=== PATIENT | female | born 1955 | race Caucasian/White ===

== ENCOUNTER → 2020-04-14 14:21 | Outpatient (BNVA) | payer MEDICARE, SELFPAY | PROVIDERS: PCP Internal Medicine; Visit Provider Internal Medicine | DX: I26.99 Other pulmonary embolism without acute cor pulmonale (principal); Z51.81 Encounter for therapeutic drug level monitoring; Z79.01 Long term (current) use of anticoagulants | CPT/HCPCS: 85610 ==

== ENCOUNTER → 2020-04-28 14:22 | Outpatient (BNVA) | payer MEDICARE, SELFPAY | PROVIDERS: PCP Internal Medicine; Visit Provider Internal Medicine | DX: I26.99 Other pulmonary embolism without acute cor pulmonale (principal); Z51.81 Encounter for therapeutic drug level monitoring; Z79.01 Long term (current) use of anticoagulants | CPT/HCPCS: 85610 ==

== ENCOUNTER → 2020-05-27 14:53 | Outpatient (BNVA) | payer MEDICARE, SELFPAY | PROVIDERS: PCP Internal Medicine; Referring Provider Internal Medicine; Visit Provider Internal Medicine | DX: I26.99 Other pulmonary embolism without acute cor pulmonale (principal); Z51.81 Encounter for therapeutic drug level monitoring; Z79.01 Long term (current) use of anticoagulants | CPT/HCPCS: 85610; 99211 ==

== ENCOUNTER → 2020-06-10 15:23 | Outpatient (BNVA) | payer MEDICARE, SELFPAY | PROVIDERS: PCP Internal Medicine; Visit Provider Internal Medicine | DX: I26.99 Other pulmonary embolism without acute cor pulmonale (principal); Z51.81 Encounter for therapeutic drug level monitoring; Z79.01 Long term (current) use of anticoagulants | CPT/HCPCS: 85610; 99211 ==

== ENCOUNTER → 2020-07-16 13:09 | Outpatient (BNVA) | payer MEDICARE, SELFPAY | PROVIDERS: PCP Internal Medicine; Visit Provider Internal Medicine | DX: I26.99 Other pulmonary embolism without acute cor pulmonale (principal); Z79.01 Long term (current) use of anticoagulants; Z51.81 Encounter for therapeutic drug level monitoring | CPT/HCPCS: 85610; 99211 ==

== ENCOUNTER → 2020-11-23 11:13 | Outpatient (BNVA) | payer MEDICARE, SELFPAY | PROVIDERS: PCP Internal Medicine; Visit Provider Internal Medicine | DX: I26.99 Other pulmonary embolism without acute cor pulmonale (principal); Z51.81 Encounter for therapeutic drug level monitoring; Z79.01 Long term (current) use of anticoagulants | CPT/HCPCS: 85610; 99211 ==

== ENCOUNTER 2020-12-03 10:22 | Outpatient (REF) | payer MEDICARE, SELFPAY ==
[2020-12-03 12:54] LABS: MANUAL DIFF FLAG NO
[2020-12-03 13:00] LABS: Basophils Absolute Auto 0.1 X10*3/uL (0.0-0.2); Basophils Percent Auto 0.7 % (0-2); Eosinophils Absolute Auto 0.1 X10*3/uL (0.0-0.4); Eosinophils Percent Auto 1.4 % (0-4); Hematocrit 43.2 % (37-47); Hemoglobin 13.6 g/dl (12.0-16.0); Imm Gran Abs Auto 0.05 X10*3/uL (0.00-0.03); Imm Gran Pct Auto 0.6 % (0.0-0.4); Lymphocytes Absolute Auto 1.7 X10*3/uL (1.2-4.9); Lymphocytes Percent Auto 19.6 % (20-40); Mean Corpuscular HGB Conc 31.5 g/dl (31.0-35.0); Mean Corpuscular Hemoglobin 28.1 pg (27.0-33.0); Mean Corpuscular Volume 89.3 fL (80-98); Monocytes Absolute Auto 0.7 X10*3/uL (0.1-1.2); Monocytes Percent Auto 7.8 % (2-11); Neutrophils Absolute Auto 5.9 X10*3/uL (2.0-8.3); Neutrophils Percent Auto 69.9 % (45-73); Platelet Count 249 X10*3/uL (160-400); Red Blood Count 4.84 X10*6/uL (4.20-5.50); Red Cell Distribution Width 14.2 % (11.0-16.0); White Blood Count 8.5 X10*3/uL (4.8-10.8)
[2020-12-03 13:27] LABS: Estimated Average Glucose 212 mg/dL
[2020-12-03 13:29] LABS: Alanine Aminotransferase 26 U/L (0-31); Alkaline Phosphatase 118 U/L (39-117); Anion Gap 17 (12-20); Aspartate Amino Transferase 21 U/L (5-31); Bilirubin Total 0.6 mg/dL (0.0-1.0); Blood Urea Nitrogen 16 mg/dL (9-16); Calcium 8.9 mg/dL (8.4-10.2); Carbon Dioxide 21 mmol/L (22-29); Chloride 104 mmol/L (96-108); Cholesterol 173 mg/dL; Estimated Glomerular Filt Rate > 60; Glucose Random 183 mg/dL (60-115); HDL Cholesterol 41 mg/dL; Potassium 4.2 mmol/L (3.3-5.1); Sodium 138 mmol/L (135-145); Total Protein 7.2 g/dL (6.5-8.0); Triglycerides 405 mg/dL
[2020-12-03 13:53] LABS: Free T4 (Free Thyroxine) 1.13 ng/dL (0.71-1.85); Thyroid Stimulating Hormone 2.13 uIU/mL (0.32-4.0)
== END 2020-12-03 10:23 | disposition home or self-care (01) ==
LOC: HO.MANLDS 10:22
PROVIDERS: Visit Provider Physician Assistant
DX: E11.9 Type 2 diabetes mellitus without complications (principal); E03.9 Hypothyroidism, unspecified
CPT/HCPCS: 36415; 80053; 80061; 83036; 84439; 84443; 85025

== ENCOUNTER → 2020-12-17 14:01 | Outpatient (BNVA) | payer MEDICARE, SELFPAY | PROVIDERS: PCP Internal Medicine; Visit Provider Internal Medicine | DX: I26.99 Other pulmonary embolism without acute cor pulmonale (principal); Z51.81 Encounter for therapeutic drug level monitoring; Z79.01 Long term (current) use of anticoagulants | CPT/HCPCS: 85610; 99211 ==

== ENCOUNTER → 2020-12-31 14:25 | Outpatient (BNVA) | payer MEDICARE, SELFPAY | PROVIDERS: PCP Internal Medicine; Visit Provider Internal Medicine | DX: I26.99 Other pulmonary embolism without acute cor pulmonale (principal); Z51.81 Encounter for therapeutic drug level monitoring; Z79.01 Long term (current) use of anticoagulants | CPT/HCPCS: 85610; 99211 ==

== ENCOUNTER → 2021-01-27 08:21 | Outpatient (BNVA) | payer MEDICARE, SELFPAY | PROVIDERS: PCP Internal Medicine; Visit Provider Internal Medicine | DX: I26.99 Other pulmonary embolism without acute cor pulmonale (principal); Z51.81 Encounter for therapeutic drug level monitoring; Z79.01 Long term (current) use of anticoagulants | CPT/HCPCS: 85610; 99211 ==

== ENCOUNTER → 2021-02-10 08:23 | Outpatient (BNVA) | payer MEDICARE, SELFPAY | PROVIDERS: PCP Internal Medicine; Visit Provider Internal Medicine | DX: I26.99 Other pulmonary embolism without acute cor pulmonale (principal); Z51.81 Encounter for therapeutic drug level monitoring; Z79.01 Long term (current) use of anticoagulants | CPT/HCPCS: 85610; 99211 ==

== ENCOUNTER → 2021-03-03 08:39 | Outpatient (BNVA) | payer MEDICARE, SELFPAY | PROVIDERS: PCP Internal Medicine; Visit Provider Internal Medicine | DX: I26.99 Other pulmonary embolism without acute cor pulmonale (principal); Z51.81 Encounter for therapeutic drug level monitoring; Z79.01 Long term (current) use of anticoagulants | CPT/HCPCS: 85610; 99211 ==

== ENCOUNTER 2021-03-22 09:39 | Outpatient (REF) | payer MEDICARE, SELFPAY ==
--- NOTE | ~2021-03-22 | MM_ITS ---
EXAMINATION: MM SCREENING DIGITAL BREAST TOMOSYNTHESIS, BILATERAL CLINICAL INFORMATION: Screening. Asymptomatic. Right breast lumpectomy in 2010. COMPARISON: Mammography: March 09, 2020 and studies dating back to January 08, 2012 TECHNIQUE: Digital breast tomosynthesis is performed in both the craniocaudal and mediolateral oblique views along with computer-aided detection (CAD). Synthesized 2D images are generated from the tomosynthesis. FINDINGS: There are scattered areas of fibroglandular density (ACR BI-RADS breast composition Category b). Post lumpectomy scarring is seen within the upper outer aspect of the right breast. No new abnormal dominant mass or suspicious grouping of calcifications are present. MM/MM tomosynthesis screening BI IMPRESSION: There are no significant changes from prior study. ASSESSMENT: BI-RADS 2: Benign RECOMMENDATION: Routine annual mammography screening. This patient's information was entered into a reminder system with a target due date for their next mammogram.
== END 2021-03-22 09:40 | disposition home or self-care (01) ==
LOC: HO.MAMMO 09:39
PROVIDERS: PCP Internal Medicine; Visit Provider Internal Medicine
DX: Z12.31 Encounter for screening mammogram for malignant neoplasm of breast (principal)
CPT/HCPCS: 77063; 77067

== ENCOUNTER → 2021-03-31 08:18 | Outpatient (BNVA) | payer MEDICARE, SELFPAY | PROVIDERS: PCP Internal Medicine; Visit Provider Internal Medicine | DX: I26.99 Other pulmonary embolism without acute cor pulmonale (principal); Z51.81 Encounter for therapeutic drug level monitoring; Z79.01 Long term (current) use of anticoagulants | CPT/HCPCS: 85610; 99211 ==

== ENCOUNTER → 2021-06-15 11:35 | Outpatient (BNVA) | payer MEDICARE, SELFPAY | PROVIDERS: PCP Internal Medicine; Visit Provider Internal Medicine | DX: I26.99 Other pulmonary embolism without acute cor pulmonale (principal); Z51.81 Encounter for therapeutic drug level monitoring; Z79.01 Long term (current) use of anticoagulants | CPT/HCPCS: 85610; 99211 ==

== ENCOUNTER → 2021-07-05 11:16 | Outpatient (BNVA) | payer MEDICARE, SELFPAY | PROVIDERS: PCP Internal Medicine; Visit Provider Internal Medicine | DX: I26.99 Other pulmonary embolism without acute cor pulmonale (principal); Z51.81 Encounter for therapeutic drug level monitoring; Z79.01 Long term (current) use of anticoagulants | CPT/HCPCS: 85610; 99211 ==

== ENCOUNTER → 2021-09-08 09:14 | Outpatient (BNVA) | payer MEDICARE, SELFPAY | PROVIDERS: PCP Internal Medicine; Visit Provider Internal Medicine | DX: I26.99 Other pulmonary embolism without acute cor pulmonale (principal); Z51.81 Encounter for therapeutic drug level monitoring; Z79.01 Long term (current) use of anticoagulants | CPT/HCPCS: 85610; 99211 ==

== ENCOUNTER → 2021-11-22 15:54 | Outpatient (BNVA) | payer MEDICARE, SELFPAY | PROVIDERS: PCP Internal Medicine; Visit Provider Internal Medicine | DX: I26.99 Other pulmonary embolism without acute cor pulmonale (principal); Z79.01 Long term (current) use of anticoagulants; Z51.81 Encounter for therapeutic drug level monitoring | CPT/HCPCS: 85610; 99211 ==

== ENCOUNTER 2021-12-12 15:04 | Outpatient (REF) | payer MEDICARE, MEDICAID, SELFPAY ==
[2021-12-12 19:02] LABS: MANUAL DIFF FLAG NO
[2021-12-12 19:07] LABS: Basophils Absolute Auto 0.1 X10*3/uL (0.0-0.2); Basophils Percent Auto 0.7 % (0-2); Eosinophils Absolute Auto 0.1 X10*3/uL (0.0-0.4); Eosinophils Percent Auto 1.5 % (0-4); Hematocrit 46.2 % (37.0-47.0); Hemoglobin 14.9 g/dl (12.0-16.0); Imm Gran Abs Auto 0.07 X10*3/uL (0.00-0.03); Imm Gran Pct Auto 0.8 % (0.0-0.4); Lymphocytes Absolute Auto 1.7 X10*3/uL (1.2-4.9); Lymphocytes Percent Auto 19.6 % (20-40); Mean Corpuscular HGB Conc 32.3 g/dl (31.0-35.0); Mean Corpuscular Hemoglobin 28.8 pg (27.0-33.0); Mean Corpuscular Volume 89.4 fL (80.0-98.0); Mean Platelet Volume 11.1 fL (9.4-12.3); Monocytes Absolute Auto 0.6 X10*3/uL (0.1-1.2); Monocytes Percent Auto 7.5 % (2-11); Neutrophils Absolute Auto 5.9 x10*3/uL (2.0-8.3); Neutrophils Percent Auto 69.9 % (45-73); Platelet Count 228 X10*3/uL (160-400); Red Blood Count 5.17 X10*6/uL (4.20-5.50); Red Cell Distribution Width 14.5 % (11.0-16.0); White Blood Count 8.5 X10*3/uL (4.8-10.8)
[2021-12-12 19:39] LABS: Alanine Aminotransferase 27 U/L (0-31); Albumin Level 4.1 g/dL (3.5-5.0); Alkaline Phosphatase 128 U/L (39-117); Anion Gap 17 (12-20); Aspartate Amino Transferase 21 U/L (5-31); Bilirubin Total 0.6 mg/dL (0.0-1.0); Blood Urea Nitrogen 18 mg/dL (9-16); Calcium 8.8 mg/dL (8.4-10.2); Carbon Dioxide 21 mmol/L (22-29); Chloride 104 mmol/L (96-108); Estimated Glomerular Filt Rate > 60; Glucose Random 204 mg/dL (60-115); Potassium 3.9 mmol/L (3.3-5.1); Sodium 138 mmol/L (135-145); Total Protein 7.4 g/dL (6.5-8.0)
[2021-12-12 19:59] LABS: Free T4 (Free Thyroxine) 1.12 ng/dL (0.71-1.85); Thyroid Stimulating Hormone 2.98 uIU/mL (0.32-4.0); Vitamin D 25-OH Total 24.4 ng/mL (>30)
[2021-12-12 20:09] LABS: Folate 17.4 ng/mL (> or = 4.0); Vitamin B12 415 pg/mL (200-900)
[2021-12-13 05:31] LABS: Estimated Average Glucose 240 mg/dL
== END 2021-12-12 15:05 | disposition home or self-care (01) ==
LOC: HO.MANLDS 15:04
PROVIDERS: Visit Provider Physician Assistant
DX: E11.65 Type 2 diabetes mellitus with hyperglycemia (principal); E11.42 Type 2 diabetes mellitus with diabetic polyneuropathy; E03.8 Other specified hypothyroidism
CPT/HCPCS: 36415; 80053; 82306; 82607; 82746; 83036; 84439; 84443; 85025

== ENCOUNTER 2022-03-28 09:41 | Outpatient (REF) | payer MEDICARE, MEDICAID, SELFPAY ==
--- NOTE | ~2022-03-28 | MM_ITS ---
EXAMINATION: MM SCREENING DIGITAL BREAST TOMOSYNTHESIS, BILATERAL CLINICAL INFORMATION: Screening. Asymptomatic. Right breast cancer status post lumpectomy, 2010. COMPARISON: Mammography: 03/22/2021, 03/09/2020, 02/28/2019 TECHNIQUE: Digital breast tomosynthesis is performed in both the craniocaudal and mediolateral oblique views along with computer-aided detection (CAD). Synthesized 2D images are generated from the tomosynthesis. Additional exaggerated right CC, left CC, and left MLO views are provided. FINDINGS: There are scattered areas of fibroglandular density (ACR BI-RADS breast composition Category b). Parenchymal pattern is similar to prior studies and there is no developing density or interval mass or architectural abnormality. No abnormal calcifications. The axilla are unremarkable. Small smooth nodular asymmetry central 3:00 left breast is similar to prior exams. The right breast has post therapy changes with mild reduced breast size and scarring posterior upper outer quadrant. MM/MM tomosynthesis screening BI IMPRESSION: No mammographic evidence of malignancy. ASSESSMENT: BI-RADS 2: Benign RECOMMENDATION: Routine annual mammography screening. This patient's information was entered into a reminder system with a target due date for their next mammogram.
== END 2022-03-28 09:42 | disposition home or self-care (01) ==
LOC: HO.MAMMO 09:41
PROVIDERS: PCP Internal Medicine; Visit Provider Internal Medicine
DX: Z12.31 Encounter for screening mammogram for malignant neoplasm of breast (principal)
CPT/HCPCS: 77063; 77067

== ENCOUNTER 2022-09-08 07:31 | Outpatient (REF) | payer MEDICARE, MEDICAID, SELFPAY ==
[2022-09-08 11:12] LABS: MANUAL DIFF FLAG NO
[2022-09-08 11:41] LABS: Basophils Absolute Auto 0.1 X10*3/uL (0.0-0.2); Eosinophils Absolute Auto 0.2 X10*3/uL (0.0-0.4); Eosinophils Percent Auto 2.7 % (0-4); Hematocrit 44.1 % (37.0-47.0); Hemoglobin 14.1 g/dl (12.0-16.0); Imm Gran Abs Auto 0.08 X10*3/uL (0.00-0.03); Lymphocytes Absolute Auto 1.2 X10*3/uL (1.2-4.9); Lymphocytes Percent Auto 15.7 % (20-40); Mean Corpuscular Hemoglobin 28.7 pg (27.0-33.0); Mean Corpuscular Volume 89.6 fL (80.0-98.0); Mean Platelet Volume 11.2 fL (9.4-12.3); Monocytes Absolute Auto 0.6 X10*3/uL (0.1-1.2); Monocytes Percent Auto 7.4 % (2-11); Neutrophils Absolute Auto 5.7 x10*3/uL (2.0-8.3); Neutrophils Percent Auto 72.2 % (45-73); Platelet Count 208 X10*3/uL (160-400); Red Blood Count 4.92 X10*6/uL (4.20-5.50); Red Cell Distribution Width 14.6 % (11.0-16.0); White Blood Count 7.9 X10*3/uL (4.8-10.8)
[2022-09-08 11:57] LABS: INTERNATIONAL NORM RATIO 2.8 (0.9-1.1); Prothrombin Time 33.6 SEC (10.0-13.1)
[2022-09-08 11:58] LABS: Estimated Average Glucose 246 mg/dL; Hemoglobin A1c % 10.2 %
[2022-09-08 12:45] LABS: Alanine Aminotransferase 21 U/L (0-31); Albumin Level 3.6 g/dL (3.5-5.0); Alkaline Phosphatase 107 U/L (39-117); Anion Gap 14 (12-20); Aspartate Amino Transferase 21 U/L (5-31); Bilirubin Total 0.8 mg/dL (0.0-1.0); Blood Urea Nitrogen 16 mg/dL (9-16); Calcium 8.5 mg/dL (8.4-10.2); Carbon Dioxide 24 mmol/L (22-29); Chloride 104 mmol/L (96-108); Cholesterol 173 mg/dL; Estimated Glomerular Filt Rate > 60; Glucose Random 242 mg/dL (60-115); HDL Cholesterol 39 mg/dL; LDL Cholesterol Calculated 89 mg/dl; Potassium 4.3 mmol/L (3.3-5.1); Sodium 138 mmol/L (135-145); Total Protein 6.4 g/dL (6.5-8.0); Triglycerides 228 mg/dL
[2022-09-08 13:08] LABS: Thyroid Stimulating Hormone 3.59 uIU/mL (0.32-4.0)
== END 2022-09-08 07:32 | disposition home or self-care (01) ==
LOC: HO.MANLDS 07:31
PROVIDERS: Visit Provider Physician Assistant
DX: E11.65 Type 2 diabetes mellitus with hyperglycemia (principal); E03.8 Other specified hypothyroidism; Z86.718 Personal history of other venous thrombosis and embolism
CPT/HCPCS: 36415; 80053; 80061; 83036; 84439; 84443; 85025; 85610

== ENCOUNTER 2022-12-13 16:46 | Outpatient (REF) | payer MEDICARE, MEDICAID, SELFPAY ==
--- NOTE | ~2022-12-13 | XR_ITS ---
EXAMINATION: XR CHEST CLINICAL INFORMATION: Acute cough COMPARISON: Chest 03/04/2019 TECHNIQUE: 2 views of the chest were obtained. FINDINGS: There is slight patchy opacity along the left heart border at the lung base. This also slight increased density in the right cardiophrenic angle. No pleural effusion. No significant abnormality is noted involving the heart, mediastinum, bony thorax or soft tissues. XR/XR chest 2V IMPRESSION: Left lower lobe pneumonia and right middle lobe atelectasis and/or pneumonia.
== END 2022-12-13 16:47 | disposition home or self-care (01) ==
LOC: HO.XRAY 16:46
PROVIDERS: PCP Internal Medicine; Visit Provider Physician Assistant
DX: R05.1 Acute cough (principal)
CPT/HCPCS: 71046

== ENCOUNTER → 2023-01-05 13:58 | Outpatient (BNVA) | payer MEDICARE, MEDICAID, SELFPAY | PROVIDERS: PCP Internal Medicine; Visit Provider Internal Medicine | DX: Z86.718 Personal history of other venous thrombosis and embolism (principal); Z79.01 Long term (current) use of anticoagulants; Z51.81 Encounter for therapeutic drug level monitoring | CPT/HCPCS: 85610; 99211 ==

== ENCOUNTER 2023-01-08 10:28 | Outpatient (REF) | payer MEDICARE, MEDICAID, SELFPAY | END 2023-01-08 10:29 | disposition home or self-care (01) | LOC: HO.MANLDS 10:28 | PROVIDERS: Visit Provider Physician Assistant | DX: E03.8 Other specified hypothyroidism (principal); E78.2 Mixed hyperlipidemia; E11.65 Type 2 diabetes mellitus with hyperglycemia | CPT/HCPCS: 36415; 80053; 80061; 83036; 84439; 84443; 85025 ==

== ENCOUNTER 2023-01-08 11:04 | Outpatient (REF) | payer MEDICARE, MEDICAID, SELFPAY ==
--- NOTE | ~2023-01-08 | XR_ITS ---
EXAMINATION: XR CHEST CLINICAL INFORMATION: Pneumonia COMPARISON: 12/13/2022 TECHNIQUE: 2 views of the chest were obtained. FINDINGS: No focal consolidation, pulmonary edema, or pleural effusion. Stable cardiomediastinal silhouette. XR/XR chest 2V IMPRESSION: No acute cardiopulmonary findings.
== END 2023-01-08 11:05 | disposition home or self-care (01) ==
LOC: HO.XRAY 11:04
PROVIDERS: PCP Internal Medicine; Visit Provider Physician Assistant
DX: J18.9 Pneumonia, unspecified organism (principal)
CPT/HCPCS: 71046

== ENCOUNTER 2023-02-05 13:00 | Outpatient (AMB) | payer MEDICARE, MEDICAID, SELFPAY ==
--- NOTE | 2023-02-05 13:08 | MHC.OFFVISCO ---
Intake Intake Visit Reasons: Anticoagulation Allergies adhesive [ADHESIVE] Allergy (Unknown, Verified 02/05/23 13:04) RASH Sulfa (Sulfonamide Antibiotics) Allergy (Unknown, Verified 02/05/23 13:04) ITCHY adhesives Allergy (Unknown, Uncoded 02/05/23 13:04) redness sulfa Allergy (Unknown, Uncoded 02/05/23 13:04) itching/rash Medication List - Last Reconciled 02/05/23 by Isabell Hopkins RN atorvastatin 20 mg PO DAILY carvedilol 12.5 mg PO BID cholecalciferol (vitamin D3) 25 mcg PO DAILY clotrimazole-betamethasone 1-0.05 % appl topical glipizide ER 10 mg PO DAILY letrozole 2.5 mg PO DAILY levothyroxine 100 mcg PO DAILY nystatin 5 mL PO QID semaglutide (Rybelsus) 7 mg PO DAILY sitagliptin phosphate (Januvia) 100 mg PO DAILY [STOOL SOFTNER PO BID] tolterodine ER 4 mg PO DAILY vitamin B complex 1 cap PO DAILY warfarin 5 mg See Protocol PO DAILY Nursing Note INR 3.8-?? out of therapeutic range Medications and supplements reviewed Patient status: pt with no c.o- unsure why inr elev Medications or supplements: no changes Diet: appetite is good, lost 22 lbs Denies any signs and symptoms of bleeding or clotting or unusual bruising Bleeding, bruising, clotting discussed Nutritional guidance given: eat greens to lower inr, no reds for 2 days Dose: hold dose today then cont 7.5mg x 3, 5mg x 4 F/U INR Date : 2 weeks?? Patient verbalizing understanding of instructions given. Coding Level of Care Code Est Patient Level 1 Diagnoses Current use of anticoagulant therapy Z79.01 Results AMB INR Fingerstick AMB INR Fingerstick 3.8 Last Edit by Isabell Hopkins RN on 02/05/23 13:11 Assessment & Plan Assessment & Plan (1) Current use of anticoagulant therapy: Code(s): Z79.01 - halfway (current) use of anticoagulants Category: Medical
[2023-02-05 13:10] LABS: Prothrombin Time Whole Bld POC 45.6 sec (11.1-13.5); ~PT, ~INR - Anti Coag Clinic 3.8 (0.9-1.1)
== END 2023-02-05 13:16 | disposition home or self-care (01) ==
LOC: HO.ACS 13:00
PROVIDERS: PCP Internal Medicine; Visit Provider Internal Medicine
DX: Z79.01 Long term (current) use of anticoagulants (principal)

== ENCOUNTER → 2023-02-05 13:00 | Outpatient (BNVA) | payer MEDICARE, MEDICAID, SELFPAY | PROVIDERS: PCP Internal Medicine; Visit Provider Internal Medicine | DX: Z86.718 Personal history of other venous thrombosis and embolism (principal); Z79.01 Long term (current) use of anticoagulants; Z51.81 Encounter for therapeutic drug level monitoring | CPT/HCPCS: 85610; 99211 ==

== ENCOUNTER 2023-02-19 08:14 | Outpatient (AMB) | payer MEDICARE, MEDICAID, SELFPAY ==
[2023-02-19 08:29] LABS: Prothrombin Time Whole Bld POC 44.9 sec (11.1-13.5); ~PT, ~INR - Anti Coag Clinic 3.7 (0.9-1.1)
--- NOTE | 2023-02-19 08:33 | MHC.OFFVISCO ---
Intake Intake Visit Reasons: Anticoagulation Allergies adhesive [ADHESIVE] Allergy (Unknown, Verified 02/19/23 08:21) RASH Sulfa (Sulfonamide Antibiotics) Allergy (Unknown, Verified 02/19/23 08:21) ITCHY adhesives Allergy (Unknown, Uncoded 02/19/23 08:21) redness sulfa Allergy (Unknown, Uncoded 02/19/23 08:21) itching/rash Medication List - Last Reconciled 02/19/23 by Francesca Sampson RN atorvastatin 20 mg PO DAILY carvedilol 12.5 mg PO BID cholecalciferol (vitamin D3) 25 mcg PO DAILY clotrimazole-betamethasone 1-0.05 % appl topical glipizide ER 10 mg PO DAILY letrozole 2.5 mg PO DAILY levothyroxine 100 mcg PO DAILY nystatin 5 mL PO QID semaglutide (Rybelsus) 7 mg PO DAILY sitagliptin phosphate (Januvia) 100 mg PO DAILY [STOOL SOFTNER PO BID] tolterodine ER 4 mg PO DAILY vitamin B complex 1 cap PO DAILY warfarin 5 mg See Protocol PO DAILY Nursing Note INR: 3.7 in therapeutic range Medications and supplements reviewed TRYING TO LOOSE WEIGHT FOR BLOOD SUGAR CONTROL EATING HEALTHIER Denies any signs and symptoms of bleeding or bruising or clotting. Bleeding, bruising, clotting discussed Nutritional guidance given - EAT MORE COOKED GREENS TO LOWER INR WELL RAW LIKE SALADS Dose: DECREASE DOSE TODAY TO 5MG THEN RESUME 7.5MG MWF/ 2.5MG X 4 DAYS F/U INR: 2 WEEKS Patient verbalizes understanding of instructions given Coding Level of Care Code Est Patient Level 1 Diagnoses Current use of anticoagulant therapy Z79.01 Assessment & Plan Assessment & Plan (1) Current use of anticoagulant therapy: Code(s): Z79.01 - senior care (current) use of anticoagulants Category: Medical
== END 2023-02-19 08:36 | disposition home or self-care (01) ==
LOC: HO.ACS 08:14
PROVIDERS: PCP Internal Medicine; Visit Provider Internal Medicine
DX: Z79.01 Long term (current) use of anticoagulants (principal)

== ENCOUNTER → 2023-02-19 08:14 | Outpatient (BNVA) | payer MEDICARE, MEDICAID, SELFPAY | PROVIDERS: PCP Internal Medicine; Visit Provider Internal Medicine | DX: Z86.718 Personal history of other venous thrombosis and embolism (principal); Z79.01 Long term (current) use of anticoagulants; Z51.81 Encounter for therapeutic drug level monitoring | CPT/HCPCS: 85610; 99211 ==

== ENCOUNTER 2023-03-05 08:18 | Outpatient (AMB) | payer MEDICARE, MEDICAID, SELFPAY ==
[2023-03-05 08:24] LABS: ~PT, ~INR - Anti Coag Clinic 2.7 (0.9-1.1)
--- NOTE | 2023-03-05 08:28 | MHC.OFFVISCO ---
Intake Intake Visit Reasons: Anticoagulation Allergies adhesive [ADHESIVE] Allergy (Unknown, Verified 03/05/23 08:18) RASH Sulfa (Sulfonamide Antibiotics) Allergy (Unknown, Verified 03/05/23 08:18) ITCHY adhesives Allergy (Unknown, Uncoded 03/05/23 08:18) redness sulfa Allergy (Unknown, Uncoded 03/05/23 08:18) itching/rash Medication List - Last Reconciled 03/05/23 by Francesca Sampson RN atorvastatin 20 mg PO DAILY carvedilol 12.5 mg PO BID cholecalciferol (vitamin D3) 25 mcg PO DAILY clotrimazole-betamethasone 1-0.05 % appl topical glipizide ER 10 mg PO DAILY letrozole 2.5 mg PO DAILY levothyroxine 100 mcg PO DAILY nystatin 5 mL PO QID semaglutide (Rybelsus) 7 mg PO DAILY sitagliptin phosphate (Januvia) 100 mg PO DAILY [STOOL SOFTNER PO BID] tolterodine ER 4 mg PO DAILY vitamin B complex 1 cap PO DAILY warfarin 5 mg See Protocol PO DAILY Nursing Note INR: 2.7 in therapeutic range Medications and supplements reviewed No changes in health, diet, medications, or supplements, Denies any signs and symptoms of bleeding or bruising or clotting. 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
== END 2023-03-05 08:29 | disposition home or self-care (01) ==
LOC: HO.ACS 08:18
PROVIDERS: PCP Internal Medicine; Visit Provider Internal Medicine
DX: Z79.01 Long term (current) use of anticoagulants (principal)

== ENCOUNTER → 2023-03-05 08:18 | Outpatient (BNVA) | payer MEDICARE, MEDICAID, SELFPAY | PROVIDERS: PCP Internal Medicine; Visit Provider Internal Medicine | DX: Z51.81 Encounter for therapeutic drug level monitoring (principal); Z79.01 Long term (current) use of anticoagulants | CPT/HCPCS: 85610; 99211 ==

== ENCOUNTER 2023-04-02 13:50 | Outpatient (AMB) | payer MEDICARE, MEDICAID, SELFPAY ==
--- NOTE | 2023-04-02 13:56 | MHC.OFFVISCO ---
Intake Intake Visit Reasons: Anticoagulation Allergies adhesive [ADHESIVE] Allergy (Unknown, Verified 04/02/23 13:50) RASH Sulfa (Sulfonamide Antibiotics) Allergy (Unknown, Verified 04/02/23 13:50) ITCHY adhesives Allergy (Unknown, Uncoded 04/02/23 13:50) redness sulfa Allergy (Unknown, Uncoded 04/02/23 13:50) itching/rash Medication List - Last Reconciled 04/02/23 by Isabell Hopkins RN atorvastatin 20 mg PO DAILY carvedilol 12.5 mg PO BID cholecalciferol (vitamin D3) 25 mcg PO DAILY clotrimazole-betamethasone 1-0.05 % appl topical glipizide ER 10 mg PO DAILY letrozole 2.5 mg PO DAILY levothyroxine 100 mcg PO DAILY nystatin 5 mL PO QID semaglutide (Rybelsus) 7 mg PO DAILY sitagliptin phosphate (Januvia) 100 mg PO DAILY [STOOL SOFTNER PO BID] tolterodine ER 4 mg PO DAILY vitamin B complex 1 cap PO DAILY warfarin 5 mg See Protocol PO DAILY Nursing Note INR 4.0-?? out of therapeutic range- unsure why inr is elev Medications and supplements reviewed Patient status: no c.o Medications or supplements: no changes Diet: same Denies any signs and symptoms of bleeding or clotting or unusual bruising Bleeding, bruising, clotting discussed Nutritional guidance given: eat greens to lower inr, no reds for 2-3 days Dose: hold warfarin today then cont reg 7.5mg x 3, 5mg x 4 F/U INR Date : 2 weeks? Patient verbalizing understanding of instructions given. Coding Level of Care Code Est Patient Level 1 Diagnoses Current use of anticoagulant therapy Z79.01 Assessment & Plan Assessment & Plan (1) Current use of anticoagulant therapy: Code(s): Z79.01 - shelter (current) use of anticoagulants Category: Medical
[2023-04-02 13:57] LABS: Prothrombin Time Whole Bld POC 48.4 sec (11.1-13.5)
== END 2023-04-02 14:02 | disposition home or self-care (01) ==
LOC: HO.ACS 13:50
PROVIDERS: PCP Internal Medicine; Visit Provider Internal Medicine
DX: Z79.01 Long term (current) use of anticoagulants (principal)

== ENCOUNTER → 2023-04-02 13:50 | Outpatient (BNVA) | payer MEDICARE, MEDICAID, SELFPAY | PROVIDERS: PCP Internal Medicine; Visit Provider Internal Medicine | DX: Z51.81 Encounter for therapeutic drug level monitoring (principal); Z79.01 Long term (current) use of anticoagulants | CPT/HCPCS: 85610; 99211 ==

== ENCOUNTER 2023-04-18 12:06 | Outpatient (REF) | payer MEDICARE, MEDICAID, SELFPAY ==
--- NOTE | ~2023-04-18 | MM_ITS ---
EXAMINATION: MM SCREENING DIGITAL BREAST TOMOSYNTHESIS, BILATERAL CLINICAL INFORMATION: Screening. Asymptomatic. The patient has a history of treated right breast cancer. COMPARISON: Mammography: This study is compared with prior exams dating back to 2018. TECHNIQUE: Digital breast tomosynthesis is performed in both the craniocaudal and mediolateral oblique views along with computer-aided detection (CAD). Synthesized 2D images are generated from the tomosynthesis. FINDINGS: There are scattered areas of fibroglandular density (ACR BI-RADS breast composition Category b). There are no significant masses, abnormal calcifications, or other abnormalities. There are architectural changes and dystrophic calcifications in the upper outer quadrant of the right breast from prior breast cancer treatment. MM/MM tomosynthesis screening BI IMPRESSION: No mammographic evidence of malignancy. ASSESSMENT: BI-RADS BI-RADS 2 - Benign Findings RECOMMENDATION: Routine annual mammography screening. 1 year F/U This examination should not preclude the clinical evaluation of a suspicious palpable abnormality. This patient's information was entered into a reminder system with a target due date for their next mammogram.
== END 2023-04-18 12:07 | disposition home or self-care (01) ==
LOC: HO.MAMMO 12:06
PROVIDERS: PCP Internal Medicine; Visit Provider Internal Medicine
DX: Z12.31 Encounter for screening mammogram for malignant neoplasm of breast (principal); I26.99 Other pulmonary embolism without acute cor pulmonale; Z51.81 Encounter for therapeutic drug level monitoring; Z79.01 Long term (current) use of anticoagulants
CPT/HCPCS: 77063; 77067; 85610; 99211

== ENCOUNTER → 2023-04-18 12:30 | Outpatient (BNV) | payer MEDICARE, MEDICAID, SELFPAY | PROVIDERS: PCP Internal Medicine; Visit Provider Radiology Diagnostic Radiology | DX: Z12.31 Encounter for screening mammogram for malignant neoplasm of breast (principal) | CPT/HCPCS: 77063; 77067 ==

== ENCOUNTER 2023-04-18 13:18 | Outpatient (AMB) | payer MEDICARE, MEDICAID, SELFPAY ==
--- NOTE | 2023-04-18 13:23 | MHC.OFFVISCO ---
Intake Intake Visit Reasons: Anticoagulation Allergies adhesive [ADHESIVE] Allergy (Unknown, Verified 04/18/23 13:18) RASH Sulfa (Sulfonamide Antibiotics) Allergy (Unknown, Verified 04/18/23 13:18) ITCHY adhesives Allergy (Unknown, Uncoded 04/18/23 13:18) redness sulfa Allergy (Unknown, Uncoded 04/18/23 13:18) itching/rash Medication List - Last Reconciled 04/18/23 by Isabell Hopkins RN atorvastatin 20 mg PO DAILY carvedilol 12.5 mg PO BID cholecalciferol (vitamin D3) 25 mcg PO DAILY clotrimazole-betamethasone 1-0.05 % appl topical glipizide ER 10 mg PO DAILY letrozole 2.5 mg PO DAILY levothyroxine 100 mcg PO DAILY nystatin 5 mL PO QID semaglutide (Rybelsus) 7 mg PO DAILY sitagliptin phosphate (Januvia) 100 mg PO DAILY [STOOL SOFTNER PO BID] tolterodine ER 4 mg PO DAILY vitamin B complex 1 cap PO DAILY warfarin 5 mg See Protocol PO DAILY Nursing Note INR: 2.7-in therapeutic range Medications and supplements reviewed No changes in health, diet, medications, or supplements, Denies any signs and symptoms of bleeding or bruising or clotting. Bleeding, bruising, clotting discussed Nutritional guidance given Dose: 7.5mg x 3, 5mg x 4 F/U INR: 2 weeks Patient verbalizes understanding of instructions given Coding Level of Care Code Est Patient Level 1 Diagnoses Current use of anticoagulant therapy Z79.01 Assessment & Plan Assessment & Plan (1) Current use of anticoagulant therapy: Code(s): Z79.01 - correction (current) use of anticoagulants Category: Medical
[2023-04-18 13:25] LABS: Prothrombin Time Whole Bld POC 32.4 sec (11.1-13.5); ~PT, ~INR - Anti Coag Clinic 2.7 (0.9-1.1)
== END 2023-04-18 13:39 | disposition home or self-care (01) ==
LOC: HO.ACS 13:18
PROVIDERS: PCP Internal Medicine; Visit Provider Internal Medicine
DX: Z79.01 Long term (current) use of anticoagulants (principal)

== ENCOUNTER 2023-05-02 13:20 | Outpatient (AMB) | payer MEDICARE, MEDICAID, SELFPAY ==
--- NOTE | 2023-05-02 13:24 | MHC.OFFVISCO ---
Intake Intake Visit Reasons: Anticoagulation Allergies adhesive [ADHESIVE] Allergy (Unknown, Verified 05/02/23 13:20) RASH Sulfa (Sulfonamide Antibiotics) Allergy (Unknown, Verified 05/02/23 13:20) ITCHY adhesives Allergy (Unknown, Uncoded 05/02/23 13:20) redness sulfa Allergy (Unknown, Uncoded 05/02/23 13:20) itching/rash Medication List - Last Reconciled 05/02/23 by Isabell Hopkins RN atorvastatin 20 mg PO DAILY carvedilol 12.5 mg PO BID cholecalciferol (vitamin D3) 25 mcg PO DAILY clotrimazole-betamethasone 1-0.05 % appl topical glipizide ER 10 mg PO DAILY letrozole 2.5 mg PO DAILY levothyroxine 100 mcg PO DAILY nystatin 5 mL PO QID semaglutide (Rybelsus) 7 mg PO DAILY sitagliptin phosphate (Januvia) 100 mg PO DAILY [STOOL SOFTNER PO BID] tolterodine ER 4 mg PO DAILY vitamin B complex 1 cap PO DAILY warfarin 5 mg See Protocol PO DAILY Nursing Note INR: 2.7- in therapeutic range of 2-3 Medications and supplements reviewed- no changes No changes in health, diet, medications, or supplements, Denies any signs and symptoms of bleeding or bruising or clotting. Bleeding, bruising, clotting discussed Nutritional guidance given Dose: 5mg x 4, 7.5mg x 3 F/U INR: 3 weeks Patient verbalizes understanding of instructions given Coding Level of Care Code Est Patient Level 1 Diagnoses Current use of anticoagulant therapy Z79.01 Results AMB INR Fingerstick AMB INR Fingerstick 2.7 Last Edit by Isabell Hopkins RN on 05/02/23 13:26 Assessment & Plan Assessment & Plan (1) Current use of anticoagulant therapy: Code(s): Z79.01 - [facility] (current) use of anticoagulants Category: Medical
[2023-05-02 13:25] LABS: ~PT, ~INR - Anti Coag Clinic 2.7 (0.9-1.1)
== END 2023-05-02 13:36 | disposition home or self-care (01) ==
LOC: HO.ACS 13:20
PROVIDERS: PCP Internal Medicine; Visit Provider Internal Medicine
DX: Z79.01 Long term (current) use of anticoagulants (principal)

== ENCOUNTER → 2023-05-02 13:20 | Outpatient (BNVA) | payer MEDICARE, MEDICAID, SELFPAY | PROVIDERS: PCP Internal Medicine; Visit Provider Internal Medicine | DX: Z51.81 Encounter for therapeutic drug level monitoring (principal); Z79.01 Long term (current) use of anticoagulants | CPT/HCPCS: 85610; 99211 ==

== ENCOUNTER 2023-05-07 09:33 | Outpatient (REF) | payer MEDICARE, MEDICAID, SELFPAY ==
[2023-05-07 13:14] LABS: MANUAL DIFF FLAG NO
[2023-05-07 13:17] LABS: Basophils Absolute Auto 0.1 X10*3/uL (0.0-0.2); Basophils Percent Auto 1.1 % (0-2); Eosinophils Absolute Auto 0.2 X10*3/uL (0.0-0.4); Eosinophils Percent Auto 2.2 % (0-4); Hematocrit 45.4 % (37.0-47.0); Hemoglobin 14.7 g/dl (12.0-16.0); Imm Gran Abs Auto 0.08 X10*3/uL (0.00-0.03); Imm Gran Pct Auto 1.1 % (0.0-0.4); Lymphocytes Absolute Auto 1.1 X10*3/uL (1.2-4.9); Lymphocytes Percent Auto 15.6 % (20-40); Mean Corpuscular HGB Conc 32.4 g/dl (31.0-35.0); Mean Corpuscular Hemoglobin 28.7 pg (27.0-33.0); Mean Corpuscular Volume 88.5 fL (80.0-98.0); Mean Platelet Volume 10.8 fL (9.4-12.3); Monocytes Absolute Auto 0.6 X10*3/uL (0.1-1.2); Monocytes Percent Auto 8.1 % (2-11); Neutrophils Absolute Auto 5.3 x10*3/uL (2.0-8.3); Neutrophils Percent Auto 71.9 % (45-73); Platelet Count 232 X10*3/uL (160-400); Red Blood Count 5.13 X10*6/uL (4.20-5.50); Red Cell Distribution Width 14.3 % (11.0-16.0); White Blood Count 7.3 X10*3/uL (4.8-10.8)
[2023-05-07 13:32] LABS: Estimated Average Glucose 220 mg/dL; Hemoglobin A1c % 9.3 % (<6.0)
[2023-05-07 13:45] LABS: Alanine Aminotransferase 21 U/L (0-31); Albumin Level 3.9 g/dL (3.5-5.0); Alkaline Phosphatase 103 U/L (39-117); Anion Gap 17 (12-20); Aspartate Amino Transferase 21 U/L (5-31); Bilirubin Total 0.7 mg/dL (0.0-1.0); Blood Urea Nitrogen 13 mg/dL (9-16); Calcium 8.8 mg/dL (8.4-10.2); Carbon Dioxide 22 mmol/L (22-29); Chloride 104 mmol/L (96-108); Cholesterol 178 mg/dL (<200); Estimated Glomerular Filt Rate > 60; Glucose Random 250 mg/dL (60-115); HDL Cholesterol 42 mg/dL (>40); LDL Cholesterol Calculated 91 mg/dL (<100); Potassium 4.2 mmol/L (3.3-5.1); Sodium 139 mmol/L (135-145); Total Protein 7.3 g/dL (6.5-8.0); Triglycerides 228 mg/dL (<150)
[2023-05-07 14:03] LABS: TSH reflex Free T4 2.59 uIU/mL (0.32-4.0)
== END 2023-05-07 09:34 | disposition home or self-care (01) ==
LOC: HO.MANLDS 09:33
PROVIDERS: Visit Provider Physician Assistant
DX: E03.8 Other specified hypothyroidism (principal); E11.65 Type 2 diabetes mellitus with hyperglycemia
CPT/HCPCS: 36415; 80053; 80061; 83036; 84443; 85025

== ENCOUNTER 2023-05-21 10:45 | Outpatient (AMB) | payer MEDICARE, MEDICAID, SELFPAY ==
--- NOTE | 2023-05-21 10:56 | MHC.OFFVISCO ---
Intake Intake Visit Reasons: Anticoagulation Allergies adhesive [ADHESIVE] Allergy (Unknown, Verified 05/21/23 10:53) RASH Sulfa (Sulfonamide Antibiotics) Allergy (Unknown, Verified 05/21/23 10:53) ITCHY adhesives Allergy (Unknown, Uncoded 05/21/23 10:53) redness sulfa Allergy (Unknown, Uncoded 05/21/23 10:53) itching/rash Medication List - Last Reconciled 05/21/23 by Isabell Hopkins RN atorvastatin 20 mg PO DAILY carvedilol 12.5 mg PO BID cholecalciferol (vitamin D3) 25 mcg PO DAILY clotrimazole-betamethasone 1-0.05 % appl topical glipizide ER 10 mg PO DAILY letrozole 2.5 mg PO DAILY levothyroxine 100 mcg PO DAILY nystatin 5 mL PO QID semaglutide (Rybelsus) 7 mg PO DAILY sitagliptin phosphate (Januvia) 100 mg PO DAILY [STOOL SOFTNER PO BID] tolterodine ER 4 mg PO DAILY vitamin B complex 1 cap PO DAILY warfarin 5 mg See Protocol PO DAILY Nursing Note INR: 2.4- in therapeutic range of 2-3 Medications and supplements reviewed- no changes pt states had a cold and finished zpack approx 3 weeks ago pt states missed a dose yesterday No changes in health, diet, medications, or supplements, Denies any signs and symptoms of bleeding or bruising or clotting. Bleeding, bruising, clotting discussed Nutritional guidance given Dose: increase dose sl today due to missed dose- then cont reg dosing 7.5mg x 3, 5mg x 4 F/U INR: Patient verbalizes understanding of instructions given Coding Level of Care Code Est Patient Level 1 Diagnoses Current use of anticoagulant therapy Z79.01 Assessment & Plan Assessment & Plan (1) Current use of anticoagulant therapy: Code(s): Z79.01 - correction (current) use of anticoagulants Category: Medical
[2023-05-21 10:57] LABS: Prothrombin Time Whole Bld POC 28.2 sec (11.1-13.5); ~PT, ~INR - Anti Coag Clinic 2.4 (0.9-1.1)
== END 2023-05-21 11:02 | disposition home or self-care (01) ==
LOC: HO.ACS 10:45
PROVIDERS: PCP Internal Medicine; Visit Provider Internal Medicine
DX: Z79.01 Long term (current) use of anticoagulants (principal)

== ENCOUNTER → 2023-05-21 10:45 | Outpatient (BNVA) | payer MEDICARE, MEDICAID, SELFPAY | PROVIDERS: PCP Internal Medicine; Visit Provider Internal Medicine | DX: Z79.01 Long term (current) use of anticoagulants (principal); Z51.81 Encounter for therapeutic drug level monitoring | CPT/HCPCS: 85610; 99211 ==

== ENCOUNTER 2023-06-04 10:55 | Outpatient (AMB) | payer MEDICARE, MEDICAID, SELFPAY ==
[2023-06-04 11:02] LABS: Prothrombin Time Whole Bld POC 40.7 sec (11.1-13.5); ~PT, ~INR - Anti Coag Clinic 3.4 (0.9-1.1)
--- NOTE | 2023-06-04 11:07 | MHC.OFFVISCO ---
Intake Intake Visit Reasons: Anticoagulation Allergies adhesive [ADHESIVE] Allergy (Unknown, Verified 05/21/23 10:53) RASH Sulfa (Sulfonamide Antibiotics) Allergy (Unknown, Verified 05/21/23 10:53) ITCHY adhesives Allergy (Unknown, Uncoded 05/21/23 10:53) redness sulfa Allergy (Unknown, Uncoded 05/21/23 10:53) itching/rash Nursing Note INR: 3.4 OUT OF therapeutic range Medications and supplements reviewed PT HAD A COLD AND TOOK TYLNOL LAST WEEK, BETTER NOW, ALSO HAD A LOT OF FOODS FROM [employer] THAT COULD RAISE THE INE Denies any signs and symptoms of bleeding or bruising or clotting. Bleeding, bruising, clotting discussed Nutritional guidance given - EAT ANOTHER GREEN TODAY AND REMEMBER TO INCREASE GREENS WHEN HAVING TYLENOL Dose: 7.5MG X 3 DAYS / 5MG X 4 DAYS F/U INR: 4 WEEKS Patient verbalizes understanding of instructions given Coding Level of Care Code Est Patient Level 1
== END 2023-06-04 11:10 | disposition home or self-care (01) ==
LOC: HO.ACS 10:55
PROVIDERS: PCP Internal Medicine; Visit Provider Internal Medicine
DX: Z79.01 Long term (current) use of anticoagulants (principal)

== ENCOUNTER → 2023-06-04 10:55 | Outpatient (BNVA) | payer MEDICARE, MEDICAID, SELFPAY | PROVIDERS: PCP Internal Medicine; Visit Provider Internal Medicine | DX: Z79.01 Long term (current) use of anticoagulants (principal); Z51.81 Encounter for therapeutic drug level monitoring | CPT/HCPCS: 85610; 99211 ==

== ENCOUNTER 2023-07-12 13:16 | Outpatient (AMB) | payer MEDICARE, MEDICAID, SELFPAY ==
--- NOTE | 2023-07-12 13:26 | MHC.OFFVISCO ---
Intake Intake Visit Reasons: Anticoagulation Allergies adhesive [ADHESIVE] Allergy (Unknown, Verified 07/12/23 13:18) RASH Sulfa (Sulfonamide Antibiotics) Allergy (Unknown, Verified 07/12/23 13:18) ITCHY adhesives Allergy (Unknown, Uncoded 05/21/23 10:53) redness sulfa Allergy (Unknown, Uncoded 05/21/23 10:53) itching/rash Medication List - Last Reconciled 07/12/23 by Autumn Quinonez RN atorvastatin 20 mg PO DAILY carvedilol 12.5 mg PO BID cholecalciferol (vitamin D3) 25 mcg PO DAILY clotrimazole-betamethasone 1-0.05 % appl topical glipizide ER 10 mg PO DAILY letrozole 2.5 mg PO DAILY levothyroxine 100 mcg PO DAILY nystatin 5 mL PO QID semaglutide (Rybelsus) 7 mg PO DAILY sitagliptin phosphate (Januvia) 100 mg PO DAILY [STOOL SOFTNER PO BID] tolterodine ER 4 mg PO DAILY vitamin B complex 1 cap PO DAILY warfarin 5 mg See Protocol PO DAILY Nursing Note NO CP,SOB,DIET/MED CHANGES,FALLS OR SX OF BLEEDING. CONTINUE PRESENT DOSE AND FOLLOW-UP IN 4 WEEKS. GOOD UNDERSTANDIN GOF DOING INSTR. Coding Level of Care Code Est Patient Level 1 Diagnoses Current use of anticoagulant therapy Z79.01 Assessment & Plan Assessment & Plan (1) Current use of anticoagulant therapy: Code(s): Z79.01 - detention (current) use of anticoagulants Category: Medical
== END 2023-07-12 13:32 | disposition home or self-care (01) ==
LOC: HO.ACS 13:16
PROVIDERS: PCP Internal Medicine; Visit Provider Internal Medicine
DX: Z79.01 Long term (current) use of anticoagulants (principal)

== ENCOUNTER → 2023-07-12 13:16 | Outpatient (BNVA) | payer MEDICARE, MEDICAID, SELFPAY | PROVIDERS: PCP Internal Medicine; Visit Provider Internal Medicine | DX: Z86.718 Personal history of other venous thrombosis and embolism (principal); Z51.81 Encounter for therapeutic drug level monitoring; Z79.01 Long term (current) use of anticoagulants | CPT/HCPCS: 85610; 99211 ==

== ENCOUNTER 2023-08-13 09:47 | Outpatient (AMB) | payer MEDICARE, MEDICAID, SELFPAY ==
--- NOTE | 2023-08-13 10:07 | MHC.OFFVISCO ---
Intake Intake Visit Reasons: Anticoagulation Allergies adhesive [ADHESIVE] Allergy (Unknown, Verified 08/13/23 09:57) RASH Sulfa (Sulfonamide Antibiotics) Allergy (Unknown, Verified 08/13/23 09:57) ITCHY adhesives Allergy (Unknown, Uncoded 08/13/23 09:57) redness sulfa Allergy (Unknown, Uncoded 08/13/23 09:57) itching/rash Medication List - Last Reconciled 08/13/23 by Isabell Hopkins RN atorvastatin 20 mg PO DAILY carvedilol 12.5 mg PO BID cholecalciferol (vitamin D3) 25 mcg PO DAILY clotrimazole-betamethasone 1-0.05 % appl topical glipizide ER 10 mg PO DAILY letrozole 2.5 mg PO DAILY levothyroxine 100 mcg PO DAILY nystatin 5 mL PO QID semaglutide (Rybelsus) 7 mg PO DAILY sitagliptin phosphate (Januvia) 100 mg PO DAILY [STOOL SOFTNER PO BID] tolterodine ER 4 mg PO DAILY vitamin B complex 1 cap PO DAILY warfarin 5 mg See Protocol PO DAILY Nursing Note INR 3.3-?? out of therapeutic range 2-3 Medications and supplements reviewed Patient status: pt with uri/cough Medications or supplements: pt currently on doxycycline 100mg bid x 10 days, on day 5, completing pred taper tomm- both can raise inr albuterol inhaler prn Diet: same Denies any signs and symptoms of bleeding or clotting or unusual bruising Bleeding, bruising, clotting discussed Nutritional guidance given: eat greens while on antibiotics Dose: 5mg today and reduce sunday to 5mg due to antibiotics, then cont reg 7.5mg x 3, 5mg x 4 F/U INR Date : 08/23/23? Patient verbalizing understanding of instructions given. 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
[2023-08-13 10:10] LABS: Prothrombin Time Whole Bld POC 40.1 sec (11.1-13.5); ~PT, ~INR - Anti Coag Clinic 3.3 (0.9-1.1)
== END 2023-08-13 10:16 | disposition home or self-care (01) ==
LOC: HO.ACS 09:47
PROVIDERS: PCP Internal Medicine; Visit Provider Internal Medicine
DX: Z79.01 Long term (current) use of anticoagulants (principal)

== ENCOUNTER → 2023-08-13 09:47 | Outpatient (BNVA) | payer MEDICARE, MEDICAID, SELFPAY | PROVIDERS: PCP Internal Medicine; Visit Provider Internal Medicine | DX: Z86.718 Personal history of other venous thrombosis and embolism (principal); Z51.81 Encounter for therapeutic drug level monitoring; Z79.01 Long term (current) use of anticoagulants | CPT/HCPCS: 85610; 99211 ==

== ENCOUNTER 2023-08-13 11:36 | Outpatient (REF) | payer MEDICARE, MEDICAID, SELFPAY ==
[2023-08-13 13:25] LABS: MANUAL DIFF FLAG NO
[2023-08-13 13:31] LABS: Basophils Absolute Auto 0.1 X10*3/uL (0.0-0.2); Basophils Percent Auto 0.5 % (0-2); Eosinophils Absolute Auto 0.1 X10*3/uL (0.0-0.4); Eosinophils Percent Auto 0.6 % (0-4); Hematocrit 45.8 % (37.0-47.0); Hemoglobin 14.9 g/dl (12.0-16.0); Imm Gran Abs Auto 0.24 X10*3/uL (0.00-0.03); Imm Gran Pct Auto 2.1 % (0.0-0.4); Lymphocytes Absolute Auto 0.9 X10*3/uL (1.2-4.9); Lymphocytes Percent Auto 8.1 % (20-40); Mean Corpuscular HGB Conc 32.5 g/dl (31.0-35.0); Mean Corpuscular Hemoglobin 28.7 pg (27.0-33.0); Mean Corpuscular Volume 88.1 fL (80.0-98.0); Mean Platelet Volume 10.8 fL (9.4-12.3); Monocytes Absolute Auto 0.3 X10*3/uL (0.1-1.2); Monocytes Percent Auto 2.2 % (2-11); Neutrophils Percent Auto 86.5 % (45-73); Platelet Count 229 X10*3/uL (160-400); Red Cell Distribution Width 14.6 % (11.0-16.0); White Blood Count 11.6 X10*3/uL (4.8-10.8)
[2023-08-13 13:44] LABS: Estimated Average Glucose 232 mg/dL; Hemoglobin A1c % 9.7 % (<6.0)
[2023-08-13 13:56] LABS: Alanine Aminotransferase 25 U/L (0-31); Albumin Level 3.8 g/dL (3.5-5.0); Alkaline Phosphatase 100 U/L (39-117); Anion Gap 16 (12-20); Aspartate Amino Transferase 18 U/L (5-31); Bilirubin Total 0.8 mg/dL (0.0-1.0); Blood Urea Nitrogen 19 mg/dL (9-16); Calcium 8.7 mg/dL (8.4-10.2); Carbon Dioxide 22 mmol/L (22-29); Chloride 102 mmol/L (96-108); Cholesterol 203 mg/dL (<200); Estimated Glomerular Filt Rate > 60; Glucose Random 327 mg/dL (60-115); HDL Cholesterol 54 mg/dL (>40); LDL Cholesterol Calculated 117 mg/dL (<100); Potassium 4.4 mmol/L (3.3-5.1); Sodium 136 mmol/L (135-145); Total Protein 7.1 g/dL (6.5-8.0); Triglycerides 162 mg/dL (<150)
== END 2023-08-13 11:37 | disposition home or self-care (01) ==
LOC: HO.HMGCLR 11:36
PROVIDERS: PCP Internal Medicine; Visit Provider Physician Assistant
DX: E11.65 Type 2 diabetes mellitus with hyperglycemia (principal)
CPT/HCPCS: 36415; 80053; 80061; 83036; 85025

== ENCOUNTER 2023-08-23 10:02 | Outpatient (AMB) | payer MEDICARE, MEDICAID, SELFPAY ==
[2023-08-23 10:14] LABS: Prothrombin Time Whole Bld POC 37.3 sec (11.1-13.5); ~PT, ~INR - Anti Coag Clinic 3.1 (0.9-1.1)
--- NOTE | 2023-08-23 10:17 | MHC.OFFVISCO ---
Intake Intake Visit Reasons: Anticoagulation Allergies adhesive [ADHESIVE] Allergy (Unknown, Verified 08/23/23 10:10) RASH Sulfa (Sulfonamide Antibiotics) Allergy (Unknown, Verified 08/23/23 10:10) ITCHY adhesives Allergy (Unknown, Uncoded 08/23/23 10:10) redness sulfa Allergy (Unknown, Uncoded 08/23/23 10:10) itching/rash Medication List - Last Reconciled 08/23/23 by Sofi Sullivan RN albuterol sulfate 90 mcg/actuation 2 puffs inhalation Q4-6H PRN atorvastatin 20 mg PO DAILY carvedilol 12.5 mg PO BID cholecalciferol (vitamin D3) 25 mcg PO DAILY clotrimazole-betamethasone 1-0.05 % appl topical doxycycline hyclate 100 mg PO BID glipizide ER 10 mg PO DAILY letrozole 2.5 mg PO DAILY levothyroxine 100 mcg PO DAILY nystatin 5 mL PO QID semaglutide (Rybelsus) 7 mg PO DAILY sitagliptin phosphate (Januvia) 100 mg PO DAILY [STOOL SOFTNER PO BID] tolterodine ER 4 mg PO DAILY vitamin B complex 1 cap PO DAILY warfarin 5 mg See Protocol PO DAILY Nursing Note INR 3.1? out of therapeutic range OF 2-3 Medications and supplements reviewed Patient status: COMPLETED COURSE OF PREDNISONE TAPER AND ON DOXY 4 TABS REMAINING, FEELS BETTER Diet: TO HAVE GREENS TODAY Denies any signs and symptoms of bleeding or clotting or unusual bruising Bleeding, bruising, clotting discussed Dose: DECREASE TOMORROW'S DOSE TO 5MG THEN RESUME USUAL DOSE F/U INR Date : 1 WEEK?? Patient verbalizing understanding of instructions given. Coding Level of Care Code Est Patient Level 1 Diagnoses Current use of anticoagulant therapy Z79.01 Assessment & Plan Assessment & Plan (1) Current use of anticoagulant therapy: Code(s): Z79.01 - [facility] (current) use of anticoagulants Category: Medical
== END 2023-08-23 10:27 | disposition home or self-care (01) ==
LOC: HO.ACS 10:02
PROVIDERS: PCP Internal Medicine; Visit Provider Internal Medicine
DX: Z79.01 Long term (current) use of anticoagulants (principal)

== ENCOUNTER → 2023-08-23 10:02 | Outpatient (BNVA) | payer MEDICARE, MEDICAID, SELFPAY | PROVIDERS: PCP Internal Medicine; Visit Provider Internal Medicine | DX: Z86.718 Personal history of other venous thrombosis and embolism (principal); Z79.01 Long term (current) use of anticoagulants; Z51.81 Encounter for therapeutic drug level monitoring | CPT/HCPCS: 85610; 99211 ==

== ENCOUNTER 2023-09-03 08:23 | Outpatient (AMB) | payer MEDICARE, MEDICAID, SELFPAY ==
[2023-09-03 08:31] LABS: Prothrombin Time Whole Bld POC 37.3 sec (11.1-13.5); ~PT, ~INR - Anti Coag Clinic 3.1 (0.9-1.1)
--- NOTE | 2023-09-03 08:36 | MHC.OFFVISCO ---
Intake Intake Visit Reasons: Anticoagulation Allergies adhesive [ADHESIVE] Allergy (Unknown, Verified 09/03/23 08:24) RASH Sulfa (Sulfonamide Antibiotics) Allergy (Unknown, Verified 09/03/23 08:24) ITCHY adhesives Allergy (Unknown, Uncoded 09/03/23 08:24) redness sulfa Allergy (Unknown, Uncoded 09/03/23 08:24) itching/rash Medication List - Last Reconciled 09/03/23 by Francesca Sampson RN albuterol sulfate 90 mcg/actuation 2 puffs inhalation Q4-6H PRN atorvastatin 20 mg PO DAILY carvedilol 12.5 mg PO BID cholecalciferol (vitamin D3) 25 mcg PO DAILY clotrimazole-betamethasone 1-0.05 % appl topical glipizide ER 10 mg PO DAILY letrozole 2.5 mg PO DAILY levothyroxine 100 mcg PO DAILY nystatin 5 mL PO QID semaglutide (Rybelsus) 14 mg PO QAM sitagliptin phosphate (Januvia) 100 mg PO DAILY [STOOL SOFTNER PO BID] tolterodine ER 4 mg PO DAILY vitamin B complex 1 cap PO DAILY warfarin 5 mg See Protocol PO DAILY Nursing Note INR: 3.1ALMOST therapeutic range Medications and supplements reviewed No changes in health, diet, medications, or supplements, Denies any signs and symptoms of bleeding or bruising or clotting. Bleeding, bruising, clotting discussed Nutritional guidance given - REVIEW FOOD LIST EAT GREENS Dose: 7.5MG MWF/ 5MG X 4 DAYS F/U INR: 4 WEEKS CALLW [facility] OR MED CHANGES Patient verbalizes understanding of instructions given Coding Level of Care Code Est Patient Level 1 Diagnoses Current use of anticoagulant therapy Z79.01 Assessment & Plan Assessment & Plan (1) Current use of anticoagulant therapy: Code(s): Z79.01 - continuous [employer] (current) use of anticoagulants Category: Medical
== END 2023-09-03 08:37 | disposition home or self-care (01) ==
LOC: HO.ACS 08:23
PROVIDERS: PCP Internal Medicine; Visit Provider Internal Medicine
DX: Z79.01 Long term (current) use of anticoagulants (principal)

== ENCOUNTER → 2023-09-03 08:23 | Outpatient (BNVA) | payer MEDICARE, MEDICAID, SELFPAY | PROVIDERS: PCP Internal Medicine; Visit Provider Internal Medicine | DX: Z86.718 Personal history of other venous thrombosis and embolism (principal); Z79.01 Long term (current) use of anticoagulants; Z51.81 Encounter for therapeutic drug level monitoring | CPT/HCPCS: 85610; 99211 ==

== ENCOUNTER 2023-10-01 08:33 | Outpatient (AMB) | payer MEDICARE, MEDICAID, SELFPAY ==
[2023-10-01 08:40] LABS: Prothrombin Time Whole Bld POC 35.3 sec (11.1-13.5); ~PT, ~INR - Anti Coag Clinic 2.9 (0.9-1.1)
--- NOTE | 2023-10-01 08:47 | MHC.OFFVISCO ---
Intake Intake Visit Reasons: Anticoagulation Allergies adhesive [ADHESIVE] Allergy (Unknown, Verified 10/01/23 08:35) RASH Sulfa (Sulfonamide Antibiotics) Allergy (Unknown, Verified 10/01/23 08:35) ITCHY adhesives Allergy (Unknown, Uncoded 10/01/23 08:35) redness sulfa Allergy (Unknown, Uncoded 10/01/23 08:35) itching/rash Medication List - Last Reconciled 10/01/23 by Sofi Sullivan, RN albuterol sulfate 90 mcg/actuation 2 puffs inhalation Q4-6H PRN atorvastatin 20 mg PO DAILY carvedilol 12.5 mg PO BID cholecalciferol (vitamin D3) 25 mcg PO DAILY clotrimazole-betamethasone 1-0.05 % appl topical glipizide ER 10 mg PO DAILY letrozole 2.5 mg PO DAILY levothyroxine 100 mcg PO DAILY nystatin 5 mL PO QID semaglutide (Rybelsus) 14 mg PO QAM sitagliptin phosphate (Januvia) 100 mg PO DAILY [STOOL SOFTNER PO BID] tolterodine ER 4 mg PO DAILY vitamin B complex 1 cap PO DAILY warfarin 5 mg See Protocol PO DAILY Nursing Note INR: 2.9 in therapeutic range of 2-3 Medications and supplements reviewed: no changes No changes in health, diet, medications, or supplements, Denies any signs and symptoms of bleeding or bruising or clotting. Bleeding, bruising, clotting discussed Nutritional guidance given to cont to balance reds and greens Dose: cont usual dose of 7.5mg X 3daya and 5mg X4 days F/U INR: 4 weeks 10/29/23 Patient verbalizes understanding of instructions given Coding Level of Care Code Est Patient Level 1 Diagnoses Current use of anticoagulant therapy Z79.01 Assessment & Plan Assessment & Plan (1) Current use of anticoagulant therapy: Code(s): Z79.01 - halfway (current) use of anticoagulants Category: Medical
== END 2023-10-01 08:50 | disposition home or self-care (01) ==
LOC: HO.ACS 08:33
PROVIDERS: PCP Internal Medicine; Visit Provider Internal Medicine
DX: Z79.01 Long term (current) use of anticoagulants (principal)

== ENCOUNTER → 2023-10-01 08:33 | Outpatient (BNVA) | payer MEDICARE, MEDICAID, SELFPAY | PROVIDERS: PCP Internal Medicine; Visit Provider Internal Medicine | DX: Z86.718 Personal history of other venous thrombosis and embolism (principal); Z79.01 Long term (current) use of anticoagulants; Z51.81 Encounter for therapeutic drug level monitoring | CPT/HCPCS: 85610; 99211 ==

== ENCOUNTER 2023-10-29 08:24 | Outpatient (AMB) | payer MEDICARE, MEDICAID, SELFPAY ==
[2023-10-29 08:31] LABS: Prothrombin Time Whole Bld POC 36.3 sec (11.1-13.5)
--- NOTE | 2023-10-29 08:37 | MHC.OFFVISCO ---
Intake Intake Visit Reasons: Anticoagulation Allergies adhesive [ADHESIVE] Allergy (Unknown, Verified 10/29/23 08:26) RASH Sulfa (Sulfonamide Antibiotics) Allergy (Unknown, Verified 10/29/23 08:26) ITCHY adhesives Allergy (Unknown, Uncoded 10/29/23 08:26) redness sulfa Allergy (Unknown, Uncoded 10/29/23 08:26) itching/rash Medication List - Last Reconciled 10/29/23 by Francesca Sampson RN albuterol sulfate 90 mcg/actuation 2 puffs inhalation Q4-6H PRN atorvastatin 20 mg PO DAILY carvedilol 12.5 mg PO BID cholecalciferol (vitamin D3) 25 mcg PO DAILY clotrimazole-betamethasone 1-0.05 % appl topical glipizide ER 10 mg PO DAILY letrozole 2.5 mg PO DAILY levothyroxine 100 mcg PO DAILY nystatin 5 mL PO QID semaglutide (Rybelsus) 14 mg PO QAM sitagliptin phosphate (Januvia) 100 mg PO DAILY [STOOL SOFTNER PO BID] tolterodine ER 4 mg PO DAILY vitamin B complex 1 cap PO DAILY warfarin 5 mg See Protocol PO DAILY Nursing Note INR: 3.0 in therapeutic range Medications and supplements reviewed No changes in health, diet, medications, or supplements, Denies any signs and symptoms of bleeding or bruising or clotting. Bleeding, bruising, clotting discussed Nutritional guidance given- REVIEW FOOD LIST WEEKLY- EAT A MIX OF FRUITS AND VEGETABLES, COOKED GREENS LOWER INR MORE THAN RAW Dose: 7.5MG X 3DAYS/ 5MG X 4 DAYS F/U INR: 4 WEEKS Patient verbalizes understanding of instructions given Coding Level of Care Code Est Patient Level 1 Diagnoses Current use of anticoagulant therapy Z79.01 Results AMB INR Fingerstick AMB INR Fingerstick 3.0 Last Edit by Francesca Sampson RN on 10/29/23 08:32 manual entry Assessment & Plan Assessment & Plan (1) Current use of anticoagulant therapy: Code(s): Z79.01 - alf (current) use of anticoagulants Category: Medical
== END 2023-10-29 08:40 | disposition home or self-care (01) ==
LOC: HO.ACS 08:24
PROVIDERS: PCP Internal Medicine; Visit Provider Internal Medicine
DX: Z79.01 Long term (current) use of anticoagulants (principal)

== ENCOUNTER → 2023-10-29 08:24 | Outpatient (BNVA) | payer MEDICARE, MEDICAID, SELFPAY | PROVIDERS: PCP Internal Medicine; Visit Provider Internal Medicine | DX: Z79.01 Long term (current) use of anticoagulants (principal) | CPT/HCPCS: 85610; 99211 ==

== ENCOUNTER 2023-11-26 15:14 | Outpatient (AMB) | payer MEDICARE, MEDICAID, SELFPAY ==
[2023-11-26 15:20] LABS: Prothrombin Time Whole Bld POC 32.6 sec (11.1-13.5); ~PT, ~INR - Anti Coag Clinic 2.7 (0.9-1.1)
--- NOTE | 2023-11-26 15:23 | MHC.OFFVISCO ---
Intake Intake Visit Reasons: Anticoagulation Allergies adhesive [ADHESIVE] Allergy (Unknown, Verified 11/26/23 15:14) RASH Sulfa (Sulfonamide Antibiotics) Allergy (Unknown, Verified 11/26/23 15:14) ITCHY adhesives Allergy (Unknown, Uncoded 11/26/23 15:14) redness sulfa Allergy (Unknown, Uncoded 11/26/23 15:14) itching/rash Medication List - Last Reconciled 11/26/23 by Francseca Sampson RN albuterol sulfate 90 mcg/actuation 2 puffs inhalation Q4-6H PRN atorvastatin 20 mg PO DAILY carvedilol 12.5 mg PO BID cholecalciferol (vitamin D3) 25 mcg PO DAILY clotrimazole-betamethasone 1-0.05 % appl topical glipizide ER 10 mg PO DAILY letrozole 2.5 mg PO DAILY levothyroxine 100 mcg PO DAILY nystatin 5 mL PO QID semaglutide (Rybelsus) 14 mg PO QAM sitagliptin phosphate (Januvia) 100 mg PO DAILY [STOOL SOFTNER PO BID] tolterodine ER 4 mg PO DAILY vitamin B complex 1 cap PO DAILY warfarin 5 mg See Protocol PO DAILY warfarin 2.5 mg PO DAILY Nursing Note INR: 2.7 in therapeutic range Medications and supplements reviewed No changes in health, diet, medications, or supplements, Denies any signs and symptoms of bleeding or bruising or clotting. 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
== END 2023-11-26 15:24 | disposition home or self-care (01) ==
LOC: HO.ACS 15:14
PROVIDERS: PCP Internal Medicine; Visit Provider Internal Medicine
DX: Z79.01 Long term (current) use of anticoagulants (principal)

== ENCOUNTER → 2023-11-26 15:14 | Outpatient (BNVA) | payer MEDICARE, MEDICAID, SELFPAY | PROVIDERS: PCP Internal Medicine; Visit Provider Internal Medicine | DX: Z86.718 Personal history of other venous thrombosis and embolism (principal); Z79.01 Long term (current) use of anticoagulants; Z51.81 Encounter for therapeutic drug level monitoring | CPT/HCPCS: 85610; 99211 ==

== ENCOUNTER 2023-12-24 08:18 | Outpatient (AMB) | payer MEDICARE, MEDICAID, SELFPAY ==
[2023-12-24 08:28] LABS: ~PT, ~INR - Anti Coag Clinic 3.2 (0.9-1.1)
--- NOTE | 2023-12-24 08:30 | MHC.OFFVISCO ---
Intake Intake Visit Reasons: Anticoagulation Allergies adhesive [ADHESIVE] Allergy (Unknown, Verified 12/24/23 08:22) RASH Sulfa (Sulfonamide Antibiotics) Allergy (Unknown, Verified 12/24/23 08:22) ITCHY adhesives Allergy (Unknown, Uncoded 12/24/23 08:22) redness sulfa Allergy (Unknown, Uncoded 12/24/23 08:22) itching/rash Medication List - Last Reconciled 12/24/23 by Sofi Ag RN albuterol sulfate 90 mcg/actuation 2 puffs inhalation Q4-6H PRN atorvastatin 20 mg PO DAILY carvedilol 12.5 mg PO BID cholecalciferol (vitamin D3) 25 mcg PO DAILY clotrimazole-betamethasone 1-0.05 % appl topical glipizide ER 10 mg PO DAILY letrozole 2.5 mg PO DAILY levothyroxine 100 mcg PO DAILY nystatin 5 mL PO QID semaglutide (Rybelsus) 14 mg PO QAM sitagliptin phosphate (Januvia) 100 mg PO DAILY [STOOL SOFTNER PO BID] tolterodine ER 4 mg PO DAILY vitamin B complex 1 cap PO DAILY warfarin 5 mg See Protocol PO DAILY warfarin 2.5 mg See Protocol PO DAILY Nursing Note Amb to ACS feeling well Medications and supplements reviewed No changes in health, diet, medications, or supplements, Denies any signs and symptoms of bleeding or bruising or clotting. Bleeding, bruising, clotting discussed INR 3.2 just above therapeutic range continue usual dosing 7.5mg x 3 days and 5mg x 4 days Nutritional guidance given greens today and tomorrow a, then balance. Be aware of change in summer eating where there is less cooked greens, may need to increase raw greens F/U INR: next month just before vacation Patient verbalizes understanding of instructions given Questionnaires HAS-BLED Does the patient had uncontrolled Hypertension?: No Does the patient have renal disease?: No Does the patient have liver disease?: No Does the patient have a history of stroke?: No Has the patient had major bleeding or predisposition to bleeding?: No Does the patient have labile INRs?: No Is the patient over 65 years of age?: Yes Is the patient on medications that gives them a predisposition to bleeding?: Yes Does the patient use alcohol?: No HAS-BLED Score: 2 CHADSVASC Age: 66-74 Gender: Female Does the patient have a history of CHF?: No Does the patient have a history of Hypertension?: Yes Does the patient have a history of Stroke/TIA/Thromboembolism?: Yes Does the patient have a history of Vascular Disease (prior NE, PAD or aortic plaque)?: No Does the patient have a history of Diabetes?: Yes CHADS VACS Score: 6 Cheri Prediction Score Rsk VTE Active Cancer: No Previous VTE, excluding superficial vein thrombosis: Yes Reduced mobility: No Already known Thrombophilic Condition: Yes With-in last month Trauma and/or Surgery: No Elderly 70 year or older: No Heart and/or Respiratory Failure: No Acute Myocardial infarction and/or Ischemic Stroke: No Acute Infection and/or Rheumatologic Disorder: No Obesity (BMI 30 or greater): Yes Ongoing Hormonal Treatment: Yes Score: 8 Cheri Score less than 4; Low Risk of VTE Cheri Score 4 or greater; High Risk of VTE Coding Level of Care Code Est Patient Level 1 Diagnoses Current use of anticoagulant therapy Z79.01 Time Spent (min) 15 Assessment & Plan Assessment & Plan (1) Current use of anticoagulant therapy: 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
== END 2023-12-24 08:43 | disposition home or self-care (01) ==
LOC: HO.ACS 08:18
PROVIDERS: PCP Internal Medicine; Visit Provider Internal Medicine
DX: Z79.01 Long term (current) use of anticoagulants (principal)

== ENCOUNTER → 2023-12-24 08:18 | Outpatient (BNVA) | payer MEDICARE, MEDICAID, SELFPAY | PROVIDERS: PCP Internal Medicine; Visit Provider Internal Medicine | DX: Z86.718 Personal history of other venous thrombosis and embolism (principal); Z79.01 Long term (current) use of anticoagulants; Z51.81 Encounter for therapeutic drug level monitoring | CPT/HCPCS: 85610; 99211 ==

== ENCOUNTER 2024-01-18 08:17 | Outpatient (AMB) | payer MEDICARE, MEDICAID, SELFPAY ==
[2024-01-18 08:33] LABS: Prothrombin Time Whole Bld POC 26.9 sec (11.1-13.5); ~PT, ~INR - Anti Coag Clinic 2.2 (0.9-1.1)
--- NOTE | 2024-01-18 08:35 | MHC.OFFVISCO ---
Intake Intake Visit Reasons: Anticoagulation Allergies adhesive [ADHESIVE] Allergy (Unknown, Verified 01/18/24 08:29) RASH Sulfa (Sulfonamide Antibiotics) Allergy (Unknown, Verified 01/18/24 08:29) ITCHY adhesives Allergy (Unknown, Uncoded 01/18/24 08:29) redness sulfa Allergy (Unknown, Uncoded 01/18/24 08:29) itching/rash Medication List - Last Reconciled 01/18/24 by Sofi Sullivan RN albuterol sulfate 90 mcg/actuation 2 puffs inhalation Q4-6H PRN atorvastatin 20 mg PO DAILY carvedilol 12.5 mg PO BID cholecalciferol (vitamin D3) 25 mcg PO DAILY clotrimazole-betamethasone 1-0.05 % appl topical glipizide ER 10 mg PO DAILY levothyroxine 100 mcg PO DAILY nystatin 5 mL PO QID semaglutide (Rybelsus) 14 mg PO QAM sitagliptin phosphate (Januvia) 100 mg PO DAILY [STOOL SOFTNER PO BID] tolterodine ER 4 mg PO DAILY vitamin B complex 1 cap PO DAILY warfarin 5 mg See Protocol PO DAILY warfarin 2.5 mg See Protocol PO DAILY Nursing Note INR: 2.2 in therapeutic range of 2-3 Medications and supplements reviewed No changes in health, diet, medications, or supplements, Denies any signs and symptoms of bleeding or bruising or clotting. Bleeding, bruising, clotting discussed Nutritional guidance given Dose: 5mg X 4 days and 7.5mg X 3 days F/U INR: 4 weeks Patient verbalizes understanding of instructions given Questionnaires HAS-BLED Does the patient had uncontrolled Hypertension?: No Does the patient have renal disease?: No Does the patient have liver disease?: No Does the patient have a history of stroke?: No Has the patient had major bleeding or predisposition to bleeding?: No Does the patient have labile INRs?: No Is the patient over 65 years of age?: Yes Is the patient on medications that gives them a predisposition to bleeding?: Yes Does the patient use alcohol?: No HAS-BLED Score: 2 CHADSVASC Age: 66-74 Gender: Female Does the patient have a history of CHF?: No Does the patient have a history of Hypertension?: No Does the patient have a history of Stroke/TIA/Thromboembolism?: Yes Does the patient have a history of Vascular Disease (prior [place], PAD or aortic plaque)?: No Does the patient have a history of Diabetes?: Yes CHADS VACS Score: 5 Cheri Prediction Score Rsk VTE Active Cancer: No Previous VTE, excluding superficial vein thrombosis: Yes Reduced mobility: No Already known Thrombophilic Condition: Yes With-in last month Trauma and/or Surgery: No Elderly 70 year or older: No Heart and/or Respiratory Failure: No Acute Myocardial infarction and/or Ischemic Stroke: No Acute Infection and/or Rheumatologic Disorder: No Obesity (BMI 30 or greater): Yes Ongoing Hormonal Treatment: No Score: 7 Cheri Score less than 4; Low Risk of VTE Cheri Score 4 or greater; High Risk of VTE Coding Level of Care Code Est Patient Level 1 Diagnoses Current use of anticoagulant therapy Z79.01 Assessment & Plan Assessment & Plan (1) Current use of anticoagulant therapy: Code(s): 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
== END 2024-01-18 08:44 | disposition home or self-care (01) ==
LOC: HO.ACS 08:17
PROVIDERS: PCP Internal Medicine; Visit Provider Internal Medicine
DX: Z79.01 Long term (current) use of anticoagulants (principal)

== ENCOUNTER → 2024-01-18 08:17 | Outpatient (BNVA) | payer MEDICARE, MEDICAID, SELFPAY | PROVIDERS: PCP Internal Medicine; Visit Provider Internal Medicine | DX: Z86.718 Personal history of other venous thrombosis and embolism (principal); Z79.01 Long term (current) use of anticoagulants; Z51.81 Encounter for therapeutic drug level monitoring | CPT/HCPCS: 85610; 99211 ==

== ENCOUNTER → 2024-02-04 08:19 | Outpatient (BNV) | payer MEDICARE, MEDICAID, SELFPAY | PROVIDERS: PCP Internal Medicine; Visit Provider Internal Medicine Medical Oncology | DX: Z86.711 Personal history of pulmonary embolism (principal) | CPT/HCPCS: 99204; 99213 ==

== ENCOUNTER 2024-02-04 09:27 | Outpatient (AMB) | payer MEDICARE, MEDICAID, SELFPAY ==
[2024-02-04 09:53] LABS: ~PT, ~INR - Anti Coag Clinic 2.5 (0.9-1.1)
--- NOTE | 2024-02-04 10:01 | MHC.OFFVISCO ---
Intake Intake Visit Reasons: Anticoagulation Allergies adhesive [ADHESIVE] Allergy (Unknown, Verified 02/04/24 09:43) RASH Sulfa (Sulfonamide Antibiotics) Allergy (Unknown, Verified 02/04/24 09:43) ITCHY adhesives Allergy (Unknown, Uncoded 02/04/24 09:43) redness sulfa Allergy (Unknown, Uncoded 02/04/24 09:43) itching/rash Medication List - Last Reconciled 02/04/24 by Francesca Sampson RN albuterol sulfate 90 mcg/actuation 2 puffs inhalation Q4-6H PRN atorvastatin 20 mg PO DAILY carvedilol 12.5 mg PO BID cholecalciferol (vitamin D3) 25 mcg PO DAILY glipizide ER 10 mg PO DAILY levothyroxine 100 mcg PO DAILY semaglutide (Rybelsus) 14 mg PO QAM sitagliptin phosphate (Januvia) 100 mg PO DAILY tolterodine ER 4 mg PO DAILY vitamin B complex 1 cap PO DAILY warfarin 5 mg See Protocol PO DAILY warfarin 2.5 mg See Protocol PO DAILY Nursing Note INR: 2.5 in therapeutic range Medications and supplements reviewed- stopping letrozole per Dr Cutler - she may go on an aspirin - Does she need coagulation studies after stopping 2 weeks ? - msg sent to Dr Cutler No changes in health, diet, or supplements, Denies any signs and symptoms of bleeding or bruising or clotting. Bleeding, bruising, clotting discussed Nutritional guidance given Dose: keep same for now F/U INR: 4 weeks if remains on warfarin Patient verbalizes understanding of instructions given Anti-Coag Initial Assessment Social Hx Patient Tobacco Use Status: Never used Tobacco Coding Level of Care Code Est Patient Level 1 Diagnoses Current use of anticoagulant therapy Z79.01 Assessment & Plan Assessment & Plan (1) Current use of anticoagulant therapy: Code(s): Z79.01 - retirement (current) use of anticoagulants Category: Medical
== END 2024-02-04 10:03 | disposition home or self-care (01) ==
PROVIDERS: PCP Internal Medicine; Visit Provider Internal Medicine
DX: Z79.01 Long term (current) use of anticoagulants (principal)

== ENCOUNTER → 2024-02-04 09:27 | Outpatient (BNVA) | payer MEDICARE, MEDICAID, SELFPAY | PROVIDERS: PCP Internal Medicine; Visit Provider Internal Medicine | DX: Z86.718 Personal history of other venous thrombosis and embolism (principal); Z79.01 Long term (current) use of anticoagulants; Z51.81 Encounter for therapeutic drug level monitoring | CPT/HCPCS: 85610; 99211 ==

== ENCOUNTER 2024-02-06 12:59 | Outpatient (REF) | payer MEDICARE, MEDICAID, SELFPAY ==
[2024-02-06 16:14] LABS: MANUAL DIFF FLAG NO
[2024-02-06 16:30] LABS: Basophils Absolute Auto 0.1 X10*3/uL (0.0-0.2); Basophils Percent Auto 0.8 % (0-2); Eosinophils Absolute Auto 0.2 X10*3/uL (0.0-0.4); Eosinophils Percent Auto 2.7 % (0-4); Hematocrit 45.5 % (37.0-47.0); Hemoglobin 14.9 g/dl (12.0-16.0); Imm Gran Abs Auto 0.08 X10*3/uL (0.00-0.03); Imm Gran Pct Auto 0.9 % (0.0-0.4); Lymphocytes Absolute Auto 1.5 X10*3/uL (1.2-4.9); Lymphocytes Percent Auto 17.5 % (20-40); Mean Corpuscular HGB Conc 32.7 g/dl (31.0-35.0); Mean Corpuscular Hemoglobin 28.8 pg (27.0-33.0); Mean Corpuscular Volume 87.8 fL (80.0-98.0); Monocytes Absolute Auto 0.6 X10*3/uL (0.1-1.2); Monocytes Percent Auto 6.5 % (2-11); Neutrophils Absolute Auto 6.3 x10*3/uL (2.0-8.3); Neutrophils Percent Auto 71.6 % (45-73); Platelet Count 234 X10*3/uL (160-400); Red Blood Count 5.18 X10*6/uL (4.20-5.50); Red Cell Distribution Width 14.6 % (11.0-16.0); White Blood Count 8.8 X10*3/uL (4.8-10.8)
[2024-02-06 16:51] LABS: Alanine Aminotransferase 20 U/L (0-31); Albumin Level 3.9 g/dL (3.5-5.0); Alkaline Phosphatase 112 U/L (39-117); Anion Gap 11 (12-20); Aspartate Amino Transferase 19 U/L (5-31); Blood Urea Nitrogen 12 mg/dL (9-16); Calcium 9.3 mg/dL (8.4-10.2); Carbon Dioxide 25 mmol/L (22-29); Chloride 105 mmol/L (96-108); Cholesterol 178 mg/dL (<200); Estimated Glomerular Filt Rate > 60; Glucose Random 192 mg/dL (60-115); HDL Cholesterol 47 mg/dL (>40); LDL Cholesterol Calculated 92 mg/dL (<100); Potassium 3.9 mmol/L (3.3-5.1); Sodium 137 mmol/L (135-145); Total Protein 7.2 g/dL (6.5-8.0); Triglycerides 196 mg/dL (<150)
[2024-02-06 16:58] LABS: Estimated Average Glucose 217 mg/dL; Hemoglobin A1c % 9.2 % (<6.0)
== END 2024-02-06 13:00 | disposition home or self-care (01) ==
LOC: HO.HMGCLDS 12:59
PROVIDERS: PCP Physician Assistant; Visit Provider Physician Assistant
DX: E11.65 Type 2 diabetes mellitus with hyperglycemia (principal)
CPT/HCPCS: 36415; 80053; 80061; 83036; 85025

== ENCOUNTER 2024-03-11 08:54 | Outpatient (AMB) | payer MEDICARE, MEDICAID, SELFPAY ==
--- NOTE | 2024-03-11 09:28 | MHC.OFFVISCO ---
Intake Intake Visit Reasons: Anticoagulation Allergies adhesive [ADHESIVE] Allergy (Unknown, Verified 03/11/24 09:18) RASH Sulfa (Sulfonamide Antibiotics) Allergy (Unknown, Verified 03/11/24 09:18) ITCHY adhesives Allergy (Unknown, Uncoded 03/11/24 09:18) redness sulfa Allergy (Unknown, Uncoded 03/11/24 09:18) itching/rash Medication List - Last Reconciled 03/11/24 by Isabell Hopkins RN albuterol sulfate 90 mcg/actuation 2 puffs inhalation Q4-6H PRN aspirin (Adult Low Dose Aspirin) 81 mg PO DAILY atorvastatin 20 mg PO DAILY carvedilol 12.5 mg PO BID cholecalciferol (vitamin D3) 25 mcg PO DAILY glipizide ER 10 mg PO DAILY levothyroxine 100 mcg PO DAILY semaglutide (Ozempic) 0.25 mg subcut QWEEK sitagliptin phosphate (Januvia) 100 mg PO DAILY tolterodine ER 4 mg PO DAILY vitamin B complex 1 cap PO DAILY Nursing Note INR 0.9-? out of therapeutic range of 2-3 Medications and supplements reviewed Patient status: pt states off warfarin per onc/hematology, baby asa dly Medications or supplements: warfarin d/c in feb, pt states rybelsus d/c and now on ozempic Diet: same Denies any signs and symptoms of bleeding or clotting or unusual bruising Bleeding, bruising, clotting discussed Nutritional guidance given: n/a Dose: n/a F/U INR Date : n/a? Patient verbalizing understanding of instructions given. composed note to hem/onc Anti-Coag Initial Assessment Social Hx Patient Tobacco Use Status: Never used Tobacco Coding Level of Care Code Est Patient Level 1 Diagnoses Current use of anticoagulant therapy Z79.01 Results AMB INR Fingerstick AMB INR Fingerstick 0.9 Last Edit by Isabell Hopkins RN on 03/11/24 09:32 Assessment & Plan Assessment & Plan (1) Current use of anticoagulant therapy: Code(s): Z79.01 - correction (current) use of anticoagulants Category: Medical
[2024-03-11 09:36] LABS: Prothrombin Time Whole Bld POC 11.3 sec (11.1-13.5); ~PT, ~INR - Anti Coag Clinic 0.9 (0.9-1.1)
== END 2024-03-11 10:20 | disposition home or self-care (01) ==
LOC: HO.ACS 08:54
PROVIDERS: PCP Physician Assistant; Visit Provider Internal Medicine
DX: Z79.01 Long term (current) use of anticoagulants (principal)

== ENCOUNTER → 2024-03-11 08:54 | Outpatient (BNVA) | payer MEDICARE, MEDICAID, SELFPAY | PROVIDERS: PCP Physician Assistant; Visit Provider Internal Medicine | DX: I26.99 Other pulmonary embolism without acute cor pulmonale (principal); I82.409 Acute embolism and thrombosis of unspecified deep veins of unspecified lower extremity; Z79.01 Long term (current) use of anticoagulants; Z51.81 Encounter for therapeutic drug level monitoring | CPT/HCPCS: 85610; 99211 ==

== ENCOUNTER 2024-04-22 11:05 | Outpatient (REF) | payer MEDICARE, MEDICAID, SELFPAY ==
--- NOTE | ~2024-04-22 | MM_ITS ---
EXAMINATION: BONE DENSITOMETRY CLINICAL INDICATION: Follow-up for osteoporosis. COMPARISON: Previous BD dated 05/25/2015 and baseline BD dated 06/14/2007. TECHNIQUE: Using a [employer] DXA System (software version: 13.1) manufactured by [employer], dual-energy x-ray absorptiometry was performed of the lumbar spine and left hip. The images are of good technical quality. Summary results are attached. FINDINGS: LEFT FEMUR, NECK: Current: BMD 0.818 g/cm2, Z-score -0.7, T-score -1.6, osteopenia. Prior: BMD 0.864 g/cm2. Baseline: BMD 1.047 g/cm2. LEFT FEMUR, TOTAL: Current: BMD 0.725 g/cm2, Z-score -1.6, T-score -2.2, osteopenia, 13.7% decrease from previous, 30.0% decrease from baseline (<5% change is not significant). Prior: BMD 0.840 g/cm2. Baseline: BMD 1.035 g/cm2. AP SPINE L1-L4: Current: BMD 1.249 g/cm2, Z-score 1.1, T-score 0.6, normal, 0.7% decrease from previous, 0.7% decrease from baseline (<5% change is not significant). Prior: BMD 1.258 g/cm2. Baseline: BMD 1.258 g/cm2. IDENTIFIED RISK FACTORS: Early menopause, secondary osteoporosis. HISTORY OF FRACTURE: None listed. MEDICATIONS: Calcium supplements or multivitamin, vitamin D. MM/XR DEXA axial skeleton IMPRESSION: 1. DIAGNOSIS: Osteopenia based on the lowest T-score value of -2.2 in the total femur applying World Health Organization criteria. 2. 10-YEAR FRACTURE RISK PREDICTION, FRAX: Major osteoporotic fracture (clinical spine, forearm, hip or shoulder) 8.9%. Hip fracture 1.2%. 3. Treatment Recommendations: NOF guidelines recommend consideration for treatment in postmenopausal women and men age 50 and older presenting with the following: -A hip or vertebral (clinical or morphometric) fracture. -T-score less than or equal to -2.5 at the femoral neck or spine after appropriate evaluation to exclude secondary causes. -Low bone mass at the hip or spine and a 10-year fracture probability by FRAX of greater than or equal to 3% for hip fracture or greater than or equal to 20% for major osteoporotic fracture based on the [place] adapted WHO algorithm. 4. Other Recommendations: All treatment decisions require clinical judgment and consideration of individual patient factors, including patient preferences, comorbidities, previous drug use, risk factors not captured in the FRAX model (e.g. frailty, falls, vitamin D deficiency, increased bone turnover, interval significant decline in bone density) and possible under or overestimation of fracture risk by FRAX. Additional medical evaluation for secondary cause of low bone mineral density may be appropriate. FUTURE SCAN RECOMMENDATION: People with diagnosed cases of osteoporosis or at high risk for fracture should have regular bone mineral density tests. For patients eligible for Medicare, routine testing is allowed once every 2 years. The testing frequency can be increased to one year for patients who have rapidly progressing disease, those who are receiving or discontinuing medical therapy to restore bone mass, or have additional risk factors. Electronically signed by: Lyndon Cheek MD 04/23/2024 02:18 PM EDT
--- NOTE | ~2024-04-22 | MM_ITS ---
EXAMINATION: MM SCREENING DIGITAL BREAST TOMOSYNTHESIS, BILATERAL CLINICAL INFORMATION: Screening. Asymptomatic. COMPARISON: Mammography: Comparison is made with available priors TECHNIQUE: Digital breast mammography with tomosynthesis is performed in both the craniocaudal and mediolateral oblique views along with computer-aided detection (CAD). FINDINGS: There are scattered areas of fibroglandular density (ACR BI-RADS breast composition Category b). There are no significant masses, abnormal calcifications, or other abnormalities. MM/MM tomosynthesis screening BI IMPRESSION: No mammographic evidence of malignancy. ASSESSMENT: BI-RADS BI-RADS 1 - Negative RECOMMENDATION: Routine annual mammography screening. 1 year F/U This examination should not preclude the clinical evaluation of a suspicious palpable abnormality. This patient's information was entered into a reminder system with a target due date for their next mammogram. Electronically signed by: Chioma Bhardwaj DO 05/01/2024 09:35 PM EDT
== END 2024-04-22 11:06 | disposition home or self-care (01) ==
LOC: HO.MAMMO 11:05
PROVIDERS: PCP Internal Medicine; Visit Provider Internal Medicine Medical Oncology
DX: Z12.31 Encounter for screening mammogram for malignant neoplasm of breast (principal); M81.0 Age-related osteoporosis without current pathological fracture
CPT/HCPCS: 77063; 77067; 77080

== ENCOUNTER → 2024-04-22 12:15 | Outpatient (BNV) | payer MEDICARE, MEDICAID, SELFPAY | PROVIDERS: PCP Internal Medicine; Visit Provider Internal Medicine | DX: Z12.31 Encounter for screening mammogram for malignant neoplasm of breast (principal) | CPT/HCPCS: 77063; 77067 ==

== ENCOUNTER 2024-04-27 07:14 | Emergency (ER) | payer MEDICARE, MEDICAID, SELFPAY ==
[2024-04-27] VITALS (7 sets, daily range): BP systolic 118–151; BP diastolic 49–76; PULSE 76–97; RESP 16–18; TEMP 36.3–36.6; O2SAT 95–98; BMI 41.6
--- NOTE | ~2024-04-27 | US_ITS ---
EXAMINATION: US TRIPLEX LOWER EXTREMITY, BILATERAL CLINICAL INFORMATION: Swelling, left greater than right COMPARISON: Left lower extremity duplex and 2014. TECHNIQUE: Color-flow triplex imaging with spectral analysis and compression Doppler were performed on the bilateral lower extremities. FINDINGS: Respiratory variation, normal compression and augmented flow are noted throughout the bilateral lower extremities. The visualized right common femoral vein, superficial femoral vein, profunda femoral vein, popliteal vein and midcalf peroneal and posterior tibial venous segments show no evidence of deep venous thrombosis. There is chronic nonocclusive wall adherent thrombus in the left proximal femoral vein to the popliteal vein. The left common femoral vein and calf vasculature appear patent. There is no Galarza's cyst. US/US venous duplex LE BI IMPRESSION: 1. No evidence of acute deep venous thrombosis involving the right lower extremity. 2. 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 Electronically signed by: Annie Levin MD 04/27/2024 08:59 AM EDT
--- NOTE | ~2024-04-27 | XR_ITS ---
EXAMINATION: XR CHEST CLINICAL INFORMATION: Bradycardia. COMPARISON: Chest radiograph 01/08/2023. TECHNIQUE: Frontal view of the chest was obtained. FINDINGS: Unchanged appearance of the cardiomediastinal silhouette. Increase peribronchial thickening compared to prior. No dense consolidation, pleural effusion or pneumothorax. No acute osseous findings. XR/XR chest 1V IMPRESSION: Increased peribronchial thickening which is nonspecific and could be associated with asthma, bronchitis, reactive airways disease or atypical infections. Electronically signed by: Radha Oquendo MD 04/27/2024 08:33 AM EDT
--- NOTE | 2024-04-27 07:41 | ECG_ITS ---
Test Reason : LIGHTHEDED Blood Pressure : / mmHG Vent. Rate : 087 BPM Atrial Rate : 087 BPM P-R Int : 186 ms QRS Dur : 110 ms QT Int : 398 ms P-R-T Axes : 023 -10 011 degrees QTc Int : 478 ms Normal sinus rhythm Incomplete right bundle branch block Possible Anterolateral infarct , age undetermined Abnormal ECG When compared with ECG of 04-MAR-2019 16:25, Borderline criteria for Anterior infarct are now Present Borderline criteria for Anterolateral infarct are now Present Referred By: Generic ED Physician Electronically Signed By:ROLANDO MIKE
--- NOTE | 2024-04-27 07:55 | ED_ITS ---
HPI - General Adult General Chief complaint: General Medical Stated complaint: Lightheaded/L leg redness Time Seen by Provider: 04/27/24 07:43 Source: patient and family Mode of arrival: ambulatory Limitations: no limitations History of Present Illness ED Provider: DR. Hawley HPI narrative: 68-year-old female brought in with her for increased swelling and burning to the left lower extremities, patient also is complaining of lightheadedness since morning and only when she change position. no chest pain, no shortness breath, no redness or hotness in her lower extremities, no fever, no chills, no headache, n Patient is scheduled to have her PCP tomorrow.o blurry vision. Patient had a history of PE/DVT was on Coumadin for AC since 2013 and recently was discontinued. Related Data Home Medications ?Medication ?Instructions ?Recorded ?Confirmed carvedilol 12.5 mg tablet 12.5 mg PO BID 12/17/20 02/04/24 levothyroxine 100 mcg tablet 100 mcg PO DAILY 12/17/20 02/04/24 tolterodine 4 mg capsule,extended 4 mg PO DAILY 12/17/20 02/04/24 release 24 hr cholecalciferol (vitamin D3) 25 25 mcg PO DAILY 03/03/21 02/04/24 mcg (1,000 unit) capsule vitamin B complex 1 cap PO DAILY 03/03/21 02/04/24 atorvastatin 20 mg tablet 20 mg PO DAILY 01/05/23 02/04/24 glipizide 10 mg tablet, extended 10 mg PO DAILY 01/05/23 02/04/24 release 24 hr albuterol sulfate 90 mcg/actuation 2 puff inhalation Q4-6H PRN 08/13/23 02/04/24 aerosol inhaler Wheezing sitagliptin phosphate 100 mg 100 mg PO DAILY 02/04/24 02/04/24 tablet (Januvia) aspirin 81 mg tablet,delayed 81 mg PO DAILY 03/11/24 03/11/24 release (Adult Low Dose Aspirin) semaglutide 0.25 mg or 0.5 mg (2 0.25 mg subcut QWEEK 03/11/24 03/11/24 mg/3 mL) subcutaneous pen injector (Ozempic) Allergies Allergy/AdvReac Type Severity Reaction Status Date / Time adhesive [ADHESIVE] Allergy Unknown RASH Verified 04/27/24 07:19 Sulfa (Sulfonamide Allergy Unknown ITCHY Verified 04/27/24 07:19 Antibiotics) adhesives Allergy Unknown redness Uncoded 03/11/24 09:18 sulfa Allergy Unknown itching/angelica Uncoded 03/11/24 09:18 h Review of Systems 2 Review of Systems: All other systems are reviewed and are negative Constitutional: Reports as per HPI and Reports no additional constitutional complaints Eyes: Reports as per HPI and Reports no additional eye complaints Reports system reviewed and no additional complaints, except as documented Cardiovascular: Reports as per HPI and Reports no additional cardiovascular complaints Respiratory: Reports as per HPI and Reports no additional respiratory complaints Gastrointestinal: Reports as per HPI and Reports no additional gastrointestinal complaints Genitourinary: Reports no additional female genitourinary complaints Musculoskeletal: Reports no additional musculoskeletal complaints Skin/Breast: Reports system reviewed and no additional complaints, except as docu Psychiatric: Reports no additional psychiatric complaints Endocrine: Reports no additional endocrine complaints Hematologic/Lymphatic: Reports no additional hematologic/lymphatic complaints Allergic/Immunologic: Reports no additional allergic/immunologic complaints Reports system reviewed and no additional complaints, except as documented and Reports Abnormal speech present [facility] Past Medical History Medical History Diabetes Social History Social History Household Members: Family Patient Tobacco Use Status: Never used Tobacco Smoked in Last 30 Days: No Use of substances other than those prescribed or required for medical reasons: No Advance Directives: No Advance Directives Information Provided: Yes Do you have a plan to hurt others: No Plan service: No Current occupational status: retired Physical Exam ED Vital Signs: Vital Signs - 24 hr 04/27/24 07:18 04/27/24 08:23 04/27/24 08:25 Temperature 97.4 F Pulse Rate 95 87 85 Respiratory Rate 16 18 Blood Pressure 132/69 118/49 L Pulse Oximetry 95 95 Oxygen Delivery Method Room Air Room Air 04/27/24 08:26 04/27/24 08:27 Temperature Pulse Rate 88 97 Respiratory Rate Blood Pressure 126/58 L 151/76 H Pulse Oximetry Oxygen Delivery Method BMI result Body Mass Index 41.6 Vital signs have been reviewed and appear to be correct. Blood pressure elevated. Heart rate normal. Respiratory rate normal. Temperature normal. Oxygen saturation normal. Appearance: Alert. Oriented X3. No acute distress. Head: Normal external exam. Normocephalic. Atraumatic. No [place] signs noted. No raccoon eyes noted Eyes: PERRLA. EOMI. Conjunctiva and sclera normal. Eyelids normal. ENT: TM's Normal. Pharynx normal. Uvula midline. Moist mucous membranes. No trismus noted. No drooling noted. No muffled voice noted. Neck: Normal inspection. Neck supple. FROM. No adenopathy. Thyroid Normal. No meningeal signs. No neck mass noted. CVS: Normal heart rate and rhythm. Heart sound normal. No murmurs noted. Pulses normal throughout. Respiratory: No respiratory distress. Painless inspiration. Breath sounds normal. No wheezes/rales/rhonchi noted. Chest nontender. No accessory muscle usage noted or decreased air movement noted. Abdomen: Soft and nontender. Bowel sounds normal in all 4 quadrants. No distention noted. No organomegaly noted. No visible injury noted. Back: No CVA tenderness. Full range of motion noted. Skin: Skin warm and dry. Normal skin color. Normal skin turgor. No rashes/lesions/lacerations noted. Extremities: Bilateral lower extremity swelling left more than right with no calf tenderness Extremities exhibit normal range of motion. Extremities nontender. Neuro: Oriented X 3. Cranial nerve exam: II-XII are grossly intact No motor deficit. No sensory deficit. Reflexes normal. Course Reevaluation(s) Reevaluation #1: lightheadedness, unremarkable cardiac workup in the emergency department cardiac event is not likely, unremarkable orthostatic vital signs, x-ray is concern of bronchitis versus atypical pneumonia patient has no coughing, no shortness of breath, normal respiratory rate, O2 sat is 100% on room air. UA reveals leuko esterase and 6-10 WBCs patient has no dysuria no frequency urination. 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 Time: 10:19 Medical Decision Making Differential Diagnosis Differential Diagnoses: The differential diagnosis associated with the presentation includes ( Dehydration, ACS, DVT, electrolyte derangement, severe anemia , UTI.) Admission/Observation Consideration of admission/observation: Escalation of care including admission/observation considered Lab Data MDM Lab Attestation statement: I reviewed the patient's lab results. 04/27/24 07:53 04/27/24 07:53 Labs: Lab Results 04/27/24 04/27/24 Range/Units 07:53 09:09 WBC 8.3 (4.8-10.8) X10*3/uL RBC 5.05 (4.20-5.50) X10*6/uL Hgb 14.6 (12.0-16.0) g/dl Hct 44.9 (37.0-47.0) % MCV 88.9 (80.0-98.0) fL MCH 28.9 (27.0-33.0) pg MCHC 32.5 (31.0-35.0) g/dl RDW 14.1 (11.0-16.0) % Plt Count 187 (160-400) X10*3/uL MPV 10.2 (9.4-12.3) fL Immature Gran % (Auto) 0.8 H (0.0-0.4) % Neut % (Auto) 77.0 H (45-73) % Lymph % (Auto) 12.7 L (20-40) % [place] % (Auto) 6.4 (2-11) % Eos % (Auto) 2.5 (0-4) % Baso % (Auto) 0.6 (0-2) % Lymph # (Auto) 1.1 L (1.2-4.9) X10*3/uL [place] # (Auto) 0.5 (0.1-1.2) X10*3/uL Eos # (Auto) 0.2 (0.0-0.4) X10*3/uL Baso # (Auto) 0.1 (0.0-0.2) X10*3/uL Abs Immat Gran (auto) 0.07 H (0.00-0.03) X10*3/uL Absolute Neuts (auto) 6.4 (2.0-8.3) x10*3/uL Absolute Nucleated RBC 0.000 (0.0-0.012) X10*3/uL Nucleated RBC % (auto) 0.0 (0.0-0.2) /100WBC PT 10.2 L (10.9-12.4) SEC INR 0.9 (0.9-1.1) Sodium 139 (135-145) mmol/L Potassium 3.8 (3.3-5.1) mmol/L Chloride 106 (96-108) mmol/L Carbon Dioxide 24 (22-29) mmol/L Anion Gap 13 (12-20) BUN 16 (9-16) mg/dL Creatinine 0.72 (0.5-1.4) mg/dL Estim Creat Clear Calc 99.1 Estimated GFR > 60 Random Glucose 299 H (60-115) mg/dL Calcium 8.4 D (8.4-10.2) mg/dL Troponin I High Sens < 2.7 (<3.5-17.0) ng/L B-Natriuretic Peptide < 10 (<100) pg/mL Urine Color Yellow Urine Appearance Clear Urine pH 6.0 (5.0-9.0) Ur Specific [place] 1.020 (1.005-1.025) Urine Protein Negative (Neg-Trace) mg/dL Urine Glucose (UA) >=1000 H (Negative) mg/dL Urine Ketones 15 (Negative) mg/dL Urine Blood Negative (Negative) Urine Nitrite Negative (Negative) Ur Leukocyte Esterase Moderate (2+) H (Negative) Urine RBC 0-2 (0-2) /HPF Urine WBC 6-10 H (0-5) /HPF Ur Squamous Epith Cells 0-2 (0-2) /HPF Urine Bacteria None Seen (None Seen) Hyaline Casts 0-2 (0-2) /LPF Independent Interpretation I performed an independent interpretation of an: EKG ( normal sinus rhythm at 87 beats per minutes, normal intervals, no ST-T changes, incomplete right bundle branch block.), Plain X-Ray ( Chest: No acute intrathoracic pathology.) and Ultrasound ( Venous ultrasound: No DVT.) Radiology Impression Discussion of test interpretation with radiology: I have reviewed the radiologist's reading. Discharge Plan Discharge Clinical Impression: Dizziness, Localized swelling of left lower leg Patient Disposition: Home, Self-Care Instructions: Lightheadedness (ED) Prescriptions: No Action cholecalciferol (vitamin D3) 25 mcg (1,000 unit) capsule 25 mcg PO DAILY vitamin B complex Capsule 1 cap PO DAILY levothyroxine 100 mcg tablet 100 mcg PO DAILY carvedilol 12.5 mg tablet 12.5 mg PO BID tolterodine 4 mg capsule,extended release 24hr 4 mg PO DAILY glipizide 10 mg tablet extended release 24hr 10 mg PO DAILY atorvastatin 20 mg tablet 20 mg PO DAILY albuterol sulfate 90 mcg/actuation HFA aerosol inhaler 2 puff inhalation Q4-6H PRN (Reason: Wheezing) Januvia 100 mg tablet 100 mg PO DAILY Ozempic 0.25 mg or 0.5 mg (2 mg/3 mL) pen injector 0.25 mg subcut QWEEK Rx Instructions: for 4 weeks aspirin [Adult Low Dose Aspirin] 81 mg tablet,delayed release (DR/EC) 81 mg PO DAILY Referrals: Anup Bowers MD [Primary Care Provider] - Print Language: Lao
[2024-04-27 07:57] LABS: MANUAL DIFF FLAG NO
[2024-04-27 08:06] LABS: Basophils Absolute Auto 0.1 X10*3/uL (0.0-0.2); Basophils Percent Auto 0.6 % (0-2); Eosinophils Absolute Auto 0.2 X10*3/uL (0.0-0.4); Eosinophils Percent Auto 2.5 % (0-4); Hematocrit 44.9 % (37.0-47.0); Hemoglobin 14.6 g/dl (12.0-16.0); Imm Gran Abs Auto 0.07 X10*3/uL (0.00-0.03); Imm Gran Pct Auto 0.8 % (0.0-0.4); Lymphocytes Absolute Auto 1.1 X10*3/uL (1.2-4.9); Lymphocytes Percent Auto 12.7 % (20-40); Mean Corpuscular HGB Conc 32.5 g/dl (31.0-35.0); Mean Corpuscular Hemoglobin 28.9 pg (27.0-33.0); Mean Corpuscular Volume 88.9 fL (80.0-98.0); Mean Platelet Volume 10.2 fL (9.4-12.3); Monocytes Absolute Auto 0.5 X10*3/uL (0.1-1.2); Monocytes Percent Auto 6.4 % (2-11); Neutrophils Absolute Auto 6.4 x10*3/uL (2.0-8.3); Platelet Count 187 X10*3/uL (160-400); Red Blood Count 5.05 X10*6/uL (4.20-5.50); Red Cell Distribution Width 14.1 % (11.0-16.0); White Blood Count 8.3 X10*3/uL (4.8-10.8)
[2024-04-27 08:15] LABS: INTERNATIONAL NORM RATIO 0.9 (0.9-1.1); Prothrombin Time 10.2 SEC (10.9-12.4)
[2024-04-27 08:16] LABS: Anion Gap 13 (12-20); Blood Urea Nitrogen 16 mg/dL (9-16); Calcium 8.4 mg/dL (8.4-10.2); Carbon Dioxide 24 mmol/L (22-29); Chloride 106 mmol/L (96-108); Creatinine Clr Calc Pharmacy 99.1; Estimated Glomerular Filt Rate > 60; Glucose Random 299 mg/dL (60-115); Potassium 3.8 mmol/L (3.3-5.1); Sodium 139 mmol/L (135-145)
[2024-04-27 08:20] LABS: B Type Natriuretic Peptide < 10 pg/mL (<100)
[2024-04-27 08:24] LABS: Troponin-I High Sensitivity < 2.7 ng/L (<3.5-17.0)
--- NOTE | 2024-04-27 08:30 | PC.NURSE ---
no dizziness and no dizziness when doig orthostatics
[2024-04-27 09:15] LABS: Appearance Urine Clear; Color Urine Yellow; Glucose Urine UA >=1000 mg/dL (Negative); Leukocyte Esterase Urine Moderate (2+) (Negative); Nitrite Urine Negative (Negative); UMIC TRIGGER UACC YES; Urine Blood Negative (Negative); Urine Ketones 15 mg/dL (Negative); Urine Protein Negative (Neg-Trace)
[2024-04-27 09:19] LABS: Bacteria Urine None Seen (None Seen); Hyaline Casts Urine 0-2 /LPF (0-2); RBC Urine 0-2 /HPF (0-2); Squamous Epithelial Cell Urine 0-2 /HPF (0-2); UACC Culture Trigger YES
== END 2024-04-27 10:30 | disposition home or self-care (01) ==
PROVIDERS: Emergency Provider Emergency Medicine; PCP Internal Medicine
DX: R42 Dizziness and giddiness (principal); R60.0 Localized edema; R00.1 Bradycardia, unspecified; I45.10 Unspecified right bundle-branch block; Z79.899 Other long term (current) drug therapy
CPT/HCPCS: 36415; 71045; 80048; 81001; 83880; 84484; 85025; 85610; 87086; 93005; 93970; 99284

== ENCOUNTER → 2024-04-27 07:41 | Outpatient (BNV) | payer MEDICARE, MEDICAID, SELFPAY | PROVIDERS: Emergency Provider Emergency Medicine; PCP Internal Medicine; Visit Provider Internal Medicine | DX: R42 Dizziness and giddiness (principal); I45.19 Other right bundle-branch block; R94.31 Abnormal electrocardiogram [ECG] [EKG] | CPT/HCPCS: 93010 ==

== ENCOUNTER 2024-04-28 10:42 | Outpatient (REF) | payer MEDICARE, MEDICAID, SELFPAY ==
[2024-04-28 14:43] LABS: T4 Thyroxine 8.4 ug/dL (4.5-12.0)
== END 2024-04-28 10:43 | disposition home or self-care (01) ==
LOC: HO.MANLDS 10:42
PROVIDERS: Visit Provider Physician Assistant
DX: E03.8 Other specified hypothyroidism (principal)
CPT/HCPCS: 36415; 84436; 84443

== ENCOUNTER 2024-08-04 10:34 | Outpatient (REF) | payer MEDICARE, MEDICAID, SELFPAY ==
[2024-08-04 13:14] LABS: MANUAL DIFF FLAG NO
[2024-08-04 13:25] LABS: Basophils Absolute Auto 0.1 X10*3/uL (0.0-0.2); Basophils Percent Auto 0.8 % (0-2); Eosinophils Absolute Auto 0.3 X10*3/uL (0.0-0.4); Eosinophils Percent Auto 2.7 % (0-4); Hematocrit 45.3 % (37.0-47.0); Hemoglobin 14.5 g/dl (12.0-16.0); Imm Gran Abs Auto 0.11 X10*3/uL (0.00-0.03); Imm Gran Pct Auto 1.2 % (0.0-0.4); Lymphocytes Absolute Auto 1.4 X10*3/uL (1.2-4.9); Lymphocytes Percent Auto 14.8 % (20-40); Mean Corpuscular Hemoglobin 28.4 pg (27.0-33.0); Mean Corpuscular Volume 88.6 fL (80.0-98.0); Mean Platelet Volume 10.7 fL (9.4-12.3); Monocytes Absolute Auto 0.6 X10*3/uL (0.1-1.2); Monocytes Percent Auto 6.8 % (2-11); Neutrophils Absolute Auto 6.8 x10*3/uL (2.0-8.3); Neutrophils Percent Auto 73.7 % (45-73); Platelet Count 243 X10*3/uL (160-400); Red Blood Count 5.11 X10*6/uL (4.20-5.50); White Blood Count 9.2 X10*3/uL (4.8-10.8)
[2024-08-04 13:30] LABS: Estimated Average Glucose 220 mg/dL; Hemoglobin A1C 289.9057 umol/L; Hemoglobin A1c % 9.3 % (<6.0); Total Hemoglobin (HGBA1C) 3704.4058 umol/L
[2024-08-04 14:01] LABS: Alanine Aminotransferase 13 U/L (0-31); Albumin Level 3.9 g/dL (3.5-5.0); Alkaline Phosphatase 117 U/L (39-117); Anion Gap 12 (12-20); Aspartate Amino Transferase 19 U/L (5-31); Bilirubin Total 0.7 mg/dL (0.0-1.0); Blood Urea Nitrogen 13 mg/dL (9-16); Calcium 9.1 mg/dL (8.4-10.2); Carbon Dioxide 22 mmol/L (22-29); Chloride 107 mmol/L (96-108); Cholesterol 152 mg/dL (<200); Estimated Glomerular Filt Rate > 60; Glucose Random 207 mg/dL (60-115); HDL Cholesterol 45 mg/dL (>40); LDL Cholesterol Calculated 75 mg/dL (<100); Potassium 4.1 mmol/L (3.3-5.1); Sodium 137 mmol/L (135-145); Total Protein 7.6 g/dL (6.5-8.0); Triglycerides 161 mg/dL (<150)
[2024-08-04 14:23] LABS: Thyroid Stimulating Hormone 2.58 uIU/mL (0.32-4.0)
--- OUTSIDE RECORDS SUMMARY | 2024-08-04 15:19 | XMS_ITS | Continuity of Care Document ---
Author Organization [place] - [facility], [facility] Address [address] [place] [address] [place] [address] Assessment No assessment recorded. Plan of Treatment Reminders Order Date Submit Date Provider Last Modified By Organization Details Last Modified Time Details Appointments FOLLOW UP 2024 09:45A MICHAEL ELLIOTT Not available Not available Not available FOLLOW UP 2024 09:15A MICHAEL ELLIOTT Not available Not available Not available Lab hemoglobi n A1c, QN, blood 2024 025 [facility], [address] [place] [address] [place], [id number], 08/04/2024 09:57:17 lipid panel, blood 2024 025 [facility], [facility] [place] [address], [address], 08/04/2024 09:57:18 CMP, serum or plasma 2024 025 [facility], [facility] [place], [address], 08/04/2024 09:57:17 CBC w/ auto diff 2024 025 [facility], [place], [address], 08/04/2024 09:57:18 TSH + free T4, serum 2024 025 [facility], [place], [address], 08/04/2024 09:57:17 Referral None recorded. Procedures None recorded. Surgeries None recorded. Imaging None recorded. Medication Orders Ozempic 1 mg/dose (4 mg/3 mL) subcutane ous pen injector 2024 025 [facility] #[id number], [address] [facility] [place], [address], 08/04/2024 09:50:59 triamcino lone acetonide 0.1 % topical ointment 2024 025 [facility] #[id number], [address] [facility] [place], [address], 08/04/2024 09:52:47 Patient TargetsNo targets recorded. Patient InstructionsNo instructions recorded. Reason for Referral None Reported. Problems Name Problem SNOMED Code Status Onset Date Resolution Date Notes Provider Name and Address Organization Details Recorded Time Type 2 diabetes mellitus 76852565 Active 2019 Not Available [facility] 3 09:15:20 Neuropathy 831276346 Active 2021 Not Available [facility] 3 09:15:20 Candidiasi s of skin 35695447 Active 2021 Not Available [facility] 3 09:15:20 Bacterial conjunctiv itis 218251155 Active 2022 Not Available [facility] 3 09:15:20 Cough 38671883 Active 2022 Not Available [facility] 3 09:15:20 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 Not Available [facility] 3 09:15:20 Pneumonia 749949484 Active 2022 Not Available [facility] 3 09:15:20 Acute bronchitis 03488523 Active 2022 Not Available [facility] 3 09:15:20 Dizziness 045303729 Active 2023 MICHAEL MOULTON [address] [place] [address], [phone], [facility] 4 10:18:49 Osteoporos is 90891936 Active 2023 MICHAEL MOULTON [address] [place], [address], [facility] 4 14:55:24 Atopic dermatitis 34350699 Active 2024 MICHAEL MOULTON [address] [place], [address], [facility] 5 09:51:31 Hypothyroi dism 16859509 Active 2017 Not Available [facility] 3 09:15:20 Hyperchole sterolemia 59808432 Active 2017 Not Available [facility] 3 09:15:20 Osteoarthr itis 283980499 Active 2017 Not Available [facility] 3 09:15:20 Obesity 704026152 Active 2017 Not Available [facility] 3 09:15:20 Essential hypertensi on 04860620 Active 2017 Not Available [facility] 3 09:15:20 History of deep vein thrombosis 802016435 Active 2017 Not Available [facility] 3 09:15:20 Pulmonary embolism 26459922 Active 2017 h/o Not Available [facility] 3 09:15:20 History of malignant neoplasm of breast 071237176 Active 2017 Not Available [facility] 3 09:15:20 Problem Notes None recorded. Procedures Surgical History Date Name Laterality Status Provider Name and Address Organization Details Recorded Time 09/07/19 17 Joint Replacement completed Kalyani Gaxiola NP, S [address] [place] [address], [phone], [facility] 03/08/2018 13:39:48 02/07/20 16 Joint Replacement completed Kalyani Gaxiola NP, S [address] [place] [address], [phone], [facility] 03/08/2018 13:40:03 03/09/20 13 Date of Last Pap Smear completed Kalyani Gaxiola NP, [address] [place], [address], [facility] 03/08/2018 13:51:39 Caesarean Section completed Kalyani Gaxiola NP, [address] [place], [address], [facility] 03/08/2018 13:42:15 Imaging Results None recorded. Procedure Notes None recorded. Medical Equipment None Reported. Allergies Allergen ID Allergen Name Allergen Category Reaction Reaction Severity Criticality Documentation Date Start Date Code Code System Note Provider Name and Address Organization Details Recorded Time 1379 Substance with sulfonami de structure and antibacte rial mechanism of action (substanc e) medicatio n Not available Not available Not available 11/23/2017 32620 8003 [facility]ED [facility] 8 08:10:53 8697 alendrona te sodium medicatio n Not available Not available Not available 08/04/202481962 2 RxNorm MICHAEL MOULTON [address] [place], [address], [facility] 5 09:48:43 Medications Name Sig Start Date Stop Date Status Note LastModified by Organization Details LastModified Time amoxicillin 500 mg capsule TAKE 4 CAPSULES BY MOUTH ONE HOUR PRIOR TO DENRAL SURGERY. 08/04 completed Not Available Not Available Not Available atorvastati n 40 mg tablet TAKE 1 TABLET EVERY DAY BY ORAL ROUTE FOR 30 DAYS. active Not Available Not Available No t Available metformin 500 mg tablet TAKE 1 TABLET BY MOUTH EVERY DAY 12/03 completed Not Available Not Available Not Available nystatin 100,000 unit/mL oral suspension TAKE 5 MILLILITE RS BY MOUTH 4 TIMES A DAY 08/07 completed Not Available Not Available Not Available prednisone 10 mg tablet PLEASE SEE ATTACHED FOR DETAILED DIRECTION S 02/05 completed Not Available Not Available Not Available doxycycline hyclate 100 mg capsule TAKE 1 CAPSULE BY MOUTH TWICE A DAY FOR 10 DAYS 02/05 completed Not Available Not Available Not Available atorvastati n 20 mg tablet TAKE 1 TABLET BY MOUTH EVERY DAY active Not Available Not Available No t Available carvedilol 12.5 mg tablet TAKE 1 TABLET BY MOUTH TWICE A DAY active Not Available Not Available No t Available clindamycin HCl 300 mg capsule TAKE 1 CAPSULE BY MOUTH THREE TIMES A DAY UNTIL FINISHED 09/06 completed Not Available Not Available Not Available ciprofloxac in 750 mg tablet Take 1 tablet every 12 hours by oral route for 7 days. 05/07 completed Not Available Not Available Not Available azithromyci n 250 mg tablet TAKE 2 TABLETS BY MOUTH TODAY, THEN TAKE 1 TABLET DAILY FOR 4 DAYS DIRECTED 04/28 completed Not Available Not Available Not Available ibuprofen 800 mg tablet TAKE 1 TABLET BY MOUTH 3 TIMES A DAY NEEDED FOR PAIN active Not Available Not Available No t Available benzonatate 200 mg capsule 1 capsule tid prn 05/07 completed Not Available Not Available Not Available tolterodine ER 4 mg capsule,ext ended release 24 hr TAKE 1 CAPSULE BY MOUTH EVERY DAY active Not Available Not Available No t Available glipizide ER 10 mg tablet, extended release 24 hr TAKE 1 TABLET BY MOUTH EVERY DAY active Not Available Not Available No t Available alendronate 70 mg tablet TAKE 1 TABLET BY MOUTH WEEKLY 08/04 completed Not Available Not Available Not Available glipizide ER 5 mg tablet, extended release 24 hr TAKE 2 TABLETS BY MOUTH EVERY DAY 12/14 completed Not Available Not Available Not Available clobetasol 0.05 % topical cream APPLY THIN COAT TO AFFECTED AREA TWICE A DAY active Not Available Not Available No t Available warfarin 2.5 mg tablet TAKE 1 TABLET BY MOUTH EVERY DAY 02/05 completed Not Available Not Available Not Available levothyroxi ne 100 mcg tablet TAKE 1 TABLET BY MOUTH EVERY DAY active Not Available Not Available No t Available triamcinolo ne acetonide 0.1 % dental paste 07/05 completed Not Available Not Available Not Available benzonatate 100 mg capsule TAKE 1 CAPSULE BY MOUTH THREE TIMES A DAY FOR 5 DAYS 12/13 completed Not Available Not Available Not Available erythromyci n 5 mg/gram (0.5 %) eye ointment APPLY 1 CM RIBBON INTO THE LOWER CONJUNCTI BRITTNEE SAC(S) IN THE AFFECTED EYE(S) BY OPHTHALMI C ROUTE 3 TIMES PER DAY 01/10 completed Not Available Not Available Not Available triamcinolo ne acetonide 0.1 % topical ointment APPLY A THIN LAYER TO THE AFFECTED AREA(S) BY TOPICAL ROUTE 2 TIMES PER DAY 2024 active Not Available Not Available Not Avai lable clotrimazol e-betametha sone 1 %-0.05 % topical cream PLEASE SEE ATTACHED FOR DETAILED DIRECTION S 01/10 completed Not Available Not Available Not Available warfarin 5 mg tablet TAKE 1 TABLET BY MOUTH EVERY DAY 02/05 completed Not Available Not Available Not Available oxycodone 5 mg capsule TAKE 1 CAPSULE BY MOUTH EVERY 6 HOURS NEEDED FOR PAIN 07/05 completed Not Available Not Available Not Available gabapentin 300 mg capsule TAKE 1 CAPSULE BY MOUTH EVERY DAY AT BEDTIME FOR 30 DAYS 05/07 completed Not Available Not Available Not Available codeine 10 mg-guaifene sin 100 mg/5 mL oral liquid Take 10 mL every 4 hours by oral route. 02/05 completed Not Available Not Available Not Available letrozole 2.5 mg tablet TAKE 1 TABLET BY MOUTH EVERY DAY 02/05 completed Not Available Not Available Not Available methylpredn isolone 4 mg tablets in a dose pack TAKE 6 TABLETS ON DAY 1 DIRECTED ON PACKAGE AND DECREASE BY 1 TAB EACH DAY FOR A TOTAL OF 6 DAYS 04/28 completed Not Available Not Available Not Available albuterol sulfate HFA 90 mcg/actuati on aerosol inhaler INHALE 2 PUFFS INTO THE LUNGS EVERY 4 HOURS NEEDED 02/05 completed Not Available Not Available Not Available Vitamin D3 25 mcg (1,000 unit) tablet Take by oral route. active Not Available Not Available No t Available Boostrix Tdap 2.5 Lf unit-8 mcg-5 Lf/0.5 mL intramuscul ar syringe 08/08 completed Not Available Not Available Not Available chlorhexidi ne gluconate 0.12 % mouthwash SWISH 15MLS BY MOUTH FOR 1 MINUTE THEN SPIT, DO NOT SWALLOW active Not Available Not Available No t Available Calcium 600 07/05 completed Not Available Not Available Not Available Stool Softener 1 Tablet qd active Not Available Not Available No t Available Januvia 100 mg tablet TAKE 1 TABLET BY MOUTH EVERY DAY active Not Available Not Available No t Available Ozempic 0.25 mg or 0.5 mg (2 mg/1.5 mL) subcutaneou s pen injector Inject 0.5 mg every week by subcutane ous route for 30 days. 08/04 completed Not Available Not Available Not Available Flucelvax Quad [id number] (PF) 60 mcg (15 mcg x 4)/0.5 mL IM syringe 10/11 completed Not Available Not Available Not Available Afluria Qd 2018- (36 mos up)(PF)60 mcg (15 mcg x4)/0.5 mL IM syringe 08/08 completed Not Available Not Available Not Available Rybelsus 14 mg tablet TAKE 1 TABLET EVERY DAY BY ORAL ROUTE FOR 90 DAYS, FOR T2DM. 02/05 completed Not Available Not Available Not Available Rybelsus 7 mg tablet TAKE 1 TABLET BY MOUTH EVERY DAY FOR 30 DAYS 08/07 completed Not Available Not Available Not Available Fluzone High-Dose Quad (PF) 240 mcg/0.7 mL IM syringe PHARMACY ADMINISTE RED 10/11 completed Not Available Not Available Not Available Ozempic 1 mg/dose (4 mg/3 mL) subcutaneou s pen injector Inject 1 mg by subcutane ous route as directed for 30 days. 2024 active Not Available Not Available Not Avai lable Ozempic 0.25 mg or 0.5 mg (2 mg/3 mL) subcutaneou s pen injector INJECT 0.5 MG SUBCUTANE OUSLY EVERY WEEK FOR 30 DAYS. active Not Available Not Available No t Available Vitals Date Recorded Body height Body mass index (BMI) Body weight Heart rate Oxygen saturation Oxygen saturation in Arterial blood by Pulse oximetry Systolic blood pressure Diastolic blood pressure Provider Name and Address Organization Details Last Updated DateTime 172.72 cm 39.2 kg/m2 813966. 83 g 87 /min 98 % 98 % 136 mm[Hg] 84 mm[Hg] [facility] 09:43:16 Social History Question Answer Notes LastModified by Organizat ion Details LastModified Time Tobacco Smoking Status Former Smoker Quit 34 yrs Ago [facility] 02/06/2024 09:37:25 What Was The Date Of Your Most Recent Tobacco Screening? 08/04/2024 [email or web address] Information not available 08/04/2024 Do You Or Have You Ever Used Any Other Forms Of Tobacco Or Nicotine? No [email or web address] Information not available 12/13/2022 Sex: Unknown Functional Status None recorded. Mental Status None recorded. Family History Relationship Description Onset Age of this Age Resolved Age Notes LastModified by Organization Details LastModified Time Father Myocardial infarction 62 [email or web address] Not available 03/08 13:37:39 Mother Myocardial infarction 82 IDDM [email or web address] Not available 03/08 13:37:39 Medical History No medical history recorded. Gynecological History Statement/Question Response If Post Menopausal, Age at Menopause 42 Date of Last Pap Smear 03/09/2013 Obstetrics History GPAL:G 2 P 2 0 0 0 Type Value Full Term 2 Total 2 Immunizations Vaccine Type Date Status Note Provider Nam e and Address Organization Details Recorded Time COVID-19, mRNA, LNP-S, PF, 30 mcg/0.3 mL dose 2 [facility] 08:20:14 Influenza, split virus, quadrivalent, preservative 8 completed Not Available [facility] 03/03/2021 18:40:28 COVID-19, mRNA, LNP-S, PF, 30 mcg/0.3 mL dose 2 [facility] 04/18/2022 08:31:24 influenza, intradermal, quadrivalent, preservative free [address] [facility] 05/08/2022 09:42:46 zoster recombinant [address] [facility] 05/08/2022 09:42:54 zoster recombinant 3 completed [facility] 09/20/2022 08:38:27 Influenza, split virus, quadrivalent, preservative 9 completed Not Available [facility] 03/03/2021 18:40:28 Tdap 9 completed Not Available [facility] 03/03/2021 18:40:28 Influenza, split virus, quadrivalent, preservative 0 completed Not Available [facility] 03/03/2021 18:40:28 zoster, unspecified formulation 5 completed Not Available [facility] 03/03/2021 18:40:28 COVID-19, mRNA, LNP-S, PF, 30 mcg/0.3 mL dose 1 completed Not Available [facility] 03/03/2021 18:40:28 COVID-19, mRNA, LNP-S, PF, 30 mcg/0.3 mL dose 1 completed Not Available [facility] 03/03/2021 18:40:28 Past Encounters Encounter ID Performer Location Encounter Start Date Encounter Closed Date Diagnosis/Indication Diagnosis SNOMED-CT Code Diagnosis ICD10 Code Diagnosis Note [id number] MICHAEL MOULTON [facility] [address] [facility],[place] [address] 08/04/2024 09:35:16 08/04/2024 10:11:14 Essential hypertension 82359638 I10 BP is excellent Type 2 clare betes mellitus 60883287 E11.65 increase to ozempic 1 mg Atopic dermatitis 194029 01 L20.89 start triamcinol one Hypercholesterolemia 136 73212 E78.2 stable Hypothyroidism 81725827 E03.8 stable Health Concerns Section Related Observation LastModified by Organization Detai ls LastModified Time None Recorded Concern Status LastModified by Organization Details LastModified Time None Recorded Payers Encounter Date Sequence Insurance Name Policy Number Policy Maciel Covered Member ID Maciel Member ID Guarantor Name 08/04/2024 1 [place]MED[place]ACEMENT HMO) [id number] Clemencia Fermin [id number] Clemencia Fermin 08/04/2024 2 [place] [facility] Clemencia Fermin [id number] Clemencia Fermin Notes Date Note Type Note Provider Name a nd Address Organization Details Recorded Time 5 text/html f/u diabetes HTN: today in the office the patient BP is 136/84 L arm sitting the patient is doing well on the BP medication with no side effects and no adjustment of their medications needed today at the appointment well-controlled on medication denies chest pain, sob, ankle swelling, orthopnea, palpitations atopic dermatitis/stasis dermatitis due to diabetes: switch to triamcinoloneuse aloe for the inflammation HLD: due for blood work hypothyroidism: due for blood work T2DM: due for blood work MICHAEL MOULTON [address] [place], [address], [facility] 08/04/2024 10:01:05 OBGyn Episode No OBEpisode recorded.
--- OUTSIDE RECORDS SUMMARY | 2024-08-04 15:19 | XMS_ITS | Data Portability ---
Author Organization [facility], Home Service Address [address] [place] [address] Assessment Encounter Date Assessment Date Assessment LastModified by Organization Details LastModified Time 07/31/2023 07/31/2023 Patient agreed and verbally consents to this audio and video Telehealth appt via a secure platform [email or web address] Not available 07/31/2023 11:14:39 Plan of Treatment Reminders Order Date Submit Date Provider Last Modified By Organization Details Last Modified Time Details Appointments FOLLOW UP 15 2024 09:45A MICHAEL ELLIOTT Not available Not available Not available FOLLOW UP 15 2024 09:15A MICHAEL ELLIOTT Not available Not available Not available Lab CMP, serum or plasma 2023 024 [facility], [place], [address], 08/07/2023 14:50:50 lipid panel, blood 2023 024 [facility], [place], [address], 08/07/2023 14:50:50 hemoglobi n A1c, QN, blood 2023 024 [facility], [place], [address], 08/07/2023 14:50:50 CBC w/ auto diff 2023 024 [facility], [place], [address], 08/07/2023 14:50:50 CMP, serum or plasma 2023 024 [facility], [address] [place] [address], [address], 02/07/2024 11:18:55 lipid panel, blood 2023 024 [facility], [address] [place] [address], [address], 02/07/2024 11:18:55 CBC w/ auto diff 2023 024 [facility], [address] [place] [address], [address], 02/07/2024 11:18:56 hemoglobi n A1c, QN, blood 2023 024 [facility], [address] [place] [address], [address], 02/07/2024 11:18:55 CMP, serum or plasma 2023 024 [facility], [address] [place] [address], [address], 02/07/2024 11:18:55 lipid panel, blood 2023 025 [facility], [address] [place] [address], [address], 02/07/2024 11:18:55 hemoglobi n A1c, QN, blood 2023 024 [facility], [address] [place] [address], [address], 02/07/2024 11:18:55 CBC w/ auto diff 2023 024 [facility], [address] [place] [address], [address], 02/07/2024 11:18:56 TSH + free T4, serum 2023 024 [facility], [address] [facility], ANNA Estr[place], [address], 04/29/2024 11:50:36 hemoglobi n A1c, QN, blood 2024 025 [facility], [address] [place] [address] [place], [address], 08/04/2024 09:57:17 lipid panel, blood 2024 025 [facility], [address] [place] [address] [place], [address], 08/04/2024 09:57:18 CMP, serum or plasma 2024 025 [facility], [facility] [place], [address], 08/04/2024 09:57:17 CBC w/ auto diff 2024 025 [facility], [facility] [place], [address], 08/04/2024 09:57:18 TSH + free T4, serum 2024 025 [facility], [facility] [place], [address], 08/04/2024 09:57:17 Referral None recorded. Procedures None recorded. Surgeries None recorded. Imaging None recorded. Medication Orders Zithromax Z-Cj [address] [facility], [address] [place], [address], 04/28/2024 09:37:33 Medrol (Cj) 4 mg tablets in a dose pack 2023 024 [email or web address], [address] [place], [address], 04/28/2024 09:37:41 Rybelsus 14 mg tablet 2023 024 [facility] [address] [place], [address], 02/06/2024 09:41:12 doxycycli ne hyclate 100 mg capsule 2023 024 [facility] [address] [place], [address], 02/06/2024 09:36:44 codeine 10 mg-guaife nesin 100 mg/5 mL oral liquid 2023 024 [address], [address] [place], [address], 02/06/2024 09:36:38 prednison e 10 mg tablet 2023 024 [facility] [address] [place], [address], 02/06/2024 09:37:01 albuterol sulfate HFA 90 mcg/actua tion aerosol inhaler 2023 024 [address], [address] [place], [address], 02/06/2024 09:36:25 Ozempic 0.25 mg or 0.5 mg (2 mg/1.5 mL) subcutane ous pen injector 2023 024 [email or web address] [address] [place], [address], 08/04/2024 09:47:35 Ozempic 0.25 mg or 0.5 mg (2 mg/1.5 mL) subcutane ous pen injector 2023 024 [facility] [address] [place], [address], 08/04/2024 09:47:35 Ozempic 1 mg/dose (4 mg/3 mL) subcutane ous pen injector 2024 025 [facility], [address] [facility] [place], [address], 08/04/2024 09:50:59 triamcino lone acetonide 0.1 % topical ointment 2024 025 [facility], [address] [facility] [place], [address], 08/04/2024 09:52:47 Patient TargetsNo targets recorded. Patient InstructionsNo instructions recorded. Reason for Referral None Reported. Results Created Date Observation Date Name Description Value Unit Range Abnormal Flag Note LastModifiedBy Organization Detail LastModifiedTime 04/23/2004/22/2024 bone densi ty No observ ation record ed. [email or web address] [address] [place], [address], 04/23/2024 16:46:15 04/27/2004/27/2024 XR, chest No observ ation record ed. [address] (Medical Records) [address] [place], [address], 04/28/2024 08:13:58 04/27/2004/27/2024 US, lower extre mity No observ ation record ed. [email or web address] (Medical Records) [address] [place], [address], 04/28/2024 08:14:36 05/01/2004/22/2024 MAMMO , scree shun, digit al, bilat eral No observ ation record ed. [email or web address] [address] [place], [address], 05/02/2024 10:13:15 Result Notes None recorded. 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 4 10:18:49 Osteoporos is 30868744 Active 2023 MICHAEL MOULTON [address] [place], [address], [facility] 4 14:55:24 Atopic dermatitis 24530665 Active 2024 MICHAEL MOULTON [address] [place], [address], [facility] 5 09:51:31 Hypothyroi dism 75862090 Active 2017 Not Available [facility] 3 09:15:20 Hyperchole sterolemia 48304800 Active 2017 Not Available [facility] 3 09:15:20 Osteoarthr itis 854621942 Active 2017 Not Available [facility] 3 09:15:20 Obesity 521503002 Active 2017 Not Available [facility] 3 09:15:20 Essential hypertensi on 44113261 Active 2017 Not Available [facility] 3 09:15:20 History of deep vein thrombosis 422546263 Active 2017 Not Available [facility] 3 09:15:20 Pulmonary embolism 85484666 Active 2017 h/o Not Available [facility] 3 09:15:20 History of malignant neoplasm of breast 944999117 Active 2017 Not Available [facility] 3 09:15:20 Problem Notes None recorded. Procedures Surgical History Date Name Laterality Status Provider Name and Address Organization Details Recorded Time 09/07/19 17 Joint Replacement completed Kalyani Gaxiola NP, S [address] [place] [address], [address], [facility] 03/08/2018 13:39:48 02/07/20 16 Joint Replacement completed Kalyani Gaxiola NP, S [address] [place] [address], [address], [facility] 03/08/2018 13:40:03 03/09/20 13 Date of Last Pap Smear completed Kalyani Gaxiola NP, S [address] [place] [address], [address], [facility] 03/08/2018 13:51:39 Caesarean Section completed Kalyani Gaxiola NP, S [address] [place] [address], [address], [facility] 03/08/2018 13:42:15 Imaging Results Imaging Date Name Status LastModified by Organiz ation Details LastModified Time 04/22/2024 bone density completed [email or web address] [facility] [address] [place] [address] [place], [address], 04/23/2024 16:46:15 04/27/2024 XR, chest completed [email or web address] [facility] (Medical Records) [address] [place], [address], 04/28/2024 08:13:58 04/27/2024 US, lower extremity completed [email or web address] [facility] (Medical Records) [address] [place], [address], 04/28/2024 08:14:36 04/22/2024 MAMMO, screening, digital, bilateral completed [email or web address] [facility] [address] [place] [address] [place], [address], 05/02/2024 10:13:15 Procedure Notes None recorded. Medical Equipment None Reported. Allergies Allergen ID Allergen Name Allergen Category Reaction Reaction Severity Criticality Documentation Date Start Date Code Code System Note Provider Name and Address Organization Details Recorded Time 1379 Substance with sulfonami de structure and antibacte rial mechanism of action (substanc e) medicatio n Not available Not available Not available 11/23/2017 [address]693 8003 SNOMED [facility] 8 08:10:53 8697 alendrona te sodium medicatio n Not available Not available Not available 08/04/202499581 2 RxNorm MICHAEL MOULTON [address] [place], [address], [facility] 5 09:48:43 Medications Name Sig Start Date [...] Available Not Available Not Available Flucelvax Quad 4494-6860 (PF) 60 mcg (15 mcg x 4)/0.5 [...] and Address Organization Details Last Updated DateTime 4 172.72 cm 40.3 kg/m2 996879. 98 g 86 /min 98 % 98 % 126 mm[Hg] 74 mm[Hg] [facility] 4 09:38:24 Date Recorded Body height Body mass index (BMI) Body weight Heart rate Oxygen saturation Oxygen saturation in Arterial blood by Pulse oximetry Systolic blood pressure Diastolic blood pressure Provider Name and Address Organization Details Last Updated DateTime 4 172.72 cm 37.5 kg/m2 406683. 52 g 87 /min 96 % 96 % 122 mm[Hg] 80 mm[Hg] Lucretia Davidsno [facility] 4 09:54:44 Date Recorded Body height Body mass index (BMI) Body weight Heart rate Oxygen saturation Oxygen saturation in Arterial blood by Pulse oximetry Systolic blood pressure Diastolic blood pressure Provider Name and Address Organization Details Last Updated DateTime 5 172.72 cm 39.2 kg/m2 861820. 83 g 87 /min 98 % 98 % 136 mm[Hg] 84 mm[Hg] Lucretia Davidson [facility] 5 09:43:16 Social History Question Answer Notes LastModified by Organizat ion Details LastModified Time Tobacco Smoking Status Former Smoker Quit 34 yrs Ago Saleem lugo [facility] 02/06/2024 09:37:25 What Was The Date Of Your Most Recent Tobacco Screening? 08/04/2024 [email or web address] Information not available 08/04/2024 Do You Or Have You Ever Used Any Other Forms Of Tobacco Or Nicotine? No [email or web address] Information not available 12/13/2022 Sex: Unknown Functional Status None recorded. Mental Status None recorded. Family History Relationship Description Onset Age of this Age Resolved Age Notes LastModified by Organization Details LastModified Time Father Myocardial infarction 62 [email or web address] Not available 03/08 13:37:39 Mother Myocardial infarction 82 IDDM [email or web address] Not available 03/08 13:37:39 Medical History No [...] 30 mcg/0.3 mL dose 2 completed Ale lugo [facility] 08/01/2021 08:20:14 Influenza, split virus, quadrivalent, preservative 8 completed Not Available [facility] 03/03/2021 18:40:28 COVID-19, mRNA, LNP-S, PF, 30 mcg/0.3 mL dose 2 completed Shasta lugo, [facility] 04/18/2022 08:31:24 influenza, intradermal, quadrivalent, preservative free 2 completed [facility] 05/08/2022 09:42:46 [facility]oster recombinant 2 [facility]/08/2022 09:42:54 zoster recombinant [address] [facility] 09/20/2022 08:38:27 Influenza, split virus, quadrivalent, preservative 9 completed Not Available [facility] 03/03/2021 18:40:28 Tdap 9 completed Not Available [facility] 03/03/2021 18:40:28 Influenza, split virus, quadrivalent, preservative 0 completed Not Available [facility] 03/03/2021 18:40:28 zoster, unspecified formulation 5 completed Not Available [facility] 03/03/2021 18:40:28 COVID-19, mRNA, LNP-S, PF, 30 mcg/0.3 mL dose 1 completed Not Available [facility] 03/03/2021 18:40:28 COVID-19, mRNA, LNP-S, PF, 30 mcg/0.3 mL dose 1 completed Not Available [facility] 03/03/2021 18:40:28 Past Encounters Encounter ID Performer Location Encounter Start Date Encounter Closed Date Diagnosis/Indication Diagnosis SNOMED-CT Code Diagnosis ICD10 Code Diagnosis Note [id number] Kalyani Gaxiola NP, S [facility] [address] [facility],[place] [address] 11/23/2017 10:19:16 11/23/2017 16:56:21 Impaired fasting glycemia 240698508 R73.01 schedule CPE Contact dermatitis 07552 004 L25.9 Essential hypertension 68180072 I10 stable Obesity 809650065 E66.9 continue weight watchers Hypothyroidism 12558393 E03.9 follow Personal h istory of primary malignant neoplasm of breast 350471239 Z85.3 on letrozole, up to date at [facility] History of deep vein thrombosis 024577726 Z86.718 on warfarin [id number] Kalyani Gaxiola NP, S [facility] [address] [facility], [place] [address] 03/08/2018 13:23:17 03/08/2018 14:57:11 Adult health examination 635797815 Z00.00 History of malignant neoplasm of breast 196251086 Z85.3 recent nml mammo Hypercholesterolemia 136 19344 E78.00 on meds, repeat Hypothyroidism 11258134 E03.9 follow, check labs Obesity 988461705 E66.9 continue weight watchers Essential hypertension 44548133 I10 stable Impaired g lucose tolerance 9589727 R73.02 recheck Pulmonary embolism 80203 003 I26.99 on coumadin [id number] October [facility] [address] [facility], [place] [address] 08/08/2019 14:57:02 08/08/2019 16:02:17 Essential hypertension 04126442 I10 Hypercholesterolemia 136 76972 E78.00 Hypothyroidism 42916185 E03.9 Impaired g lucose tolerance 1653677 R73.02 History of deep vein thrombosis 678501578 Z86.718 Obesity 347993716 E66.9 Clearing t hroat - hawking 480719987 R05 Pulmonary embolism 39547 003 I26.99 Urinary incontinence 165 170728 R32 [id number] [facility] [address] [facility], [address] [employer] [facility] [place] [address] 09/10/2019 13:45:10 09/10/2019 14:54:23 Type 2 diabetes mellitus 74489967 E11.65 diet counsellin aydni provided has blood sugar meter and supplies Obesity 675609972 E66.9 Hypothyroidism 54070537 E03.9 stable per recent labs [id number] MICHAEL MOULTON [facility] [address] [facility] [address] 12/03/2020 09:41:36 12/03/2020 15:35:48 Essential hypertension 95065553 I10 BP fine will continue to monitor Type 2 clare betes mellitus 73022837 E11.9 needs recheck BW will fu with results and start new med for diabetes Obesity 288986789 E66.09 discussed diet control and exercise Hypothyroidism 03458406 E03.9 needs recheck [id number] MICHAEL MOULTON [facility] [address] [facility] [address] 07/05/2021 08:10:06 07/05/2021 10:11:10 Type 2 diabetes mellitus 48736648 E11.65 needs recheck BWdoing well on glipizide, no side effects Pulmonary embolism 66212 003 I26.99 resolved/s table Essential hypertension 51467641 I10 BP fine will continue to monitor Hypothyroidism 51149428 E03.8 needs recheckwil l submit orders [id number] MICHAEL MOULTON [facility] [address] [facility] [address] 12/12/2021 13:30:54 12/13/2021 08:11:41 Type 2 diabetes mellitus 88806638 E11.65 needs recheck BWdoing well on glipizide, no side effects Hypothyroidism 28847963 E03.8 needs recheckwil l submit orders Neuropathy 751214997 G62 .9 will check a few labs to find if there is a def causing nighttime Candidiasis of skin 4988 3006 B37.2 will fu with topical cream [id number] MICHAEL MOULTON [facility] [address] [facility] [address] 09/06/2022 15:41:44 09/06/2022 16:43:29 Type 2 diabetes mellitus 01737382 E11.65 needs recheck BWdoing well on glipizide, no side effects Essential hypertension 20165789 I10 BP fine will continue to monitor History of deep vein thrombosis 961708889 Z86.718 will set up with [facility] clinic d/c her due to no shows Pulmonary embolism 73025 003 I26.99 resolved/s table Hypercholesterolemia 136 62824 E78.2 will set up with lab work Hypothyroidism 68102377 E03.8 needs recheckwil l submit orders [id number] MICHAEL MOULTON [facility] [address] [facility],[place] [address] 12/13/2022 10:34:56 12/13/2022 11:22:46 Bacterial conjunctivitis 850902296 H10.013 agreed to switch to oral Cough 06301045 R05.1 agreed to CXR and switching to codeine-gu aifenesin Oral liche noid mucositis 929074004 K12.39 will see if nystatin helps more; prior topical did not (it was steriod based per patient) [id number] MICHAEL MOULTON [facility] [address] [facility],[place] [address] 05/07/2023 09:01:20 05/07/2023 09:56:41 Essential hypertension 38508406 I10 BP is excellent Hypercholesterolemia 136 58136 E78.2 stable Hypothyroidism 74538865 E03.8 stable Type 2 clare betes mellitus 49195515 E11.65 will set up with medication s Acute bronchitis 8805279 2 J20.9 will start on z cj and cough syrup [id number] MICHAEL MOULTON [facility] [address] [facility],[place] [address] 07/31/2023 09:26:56 07/31/2023 11:49:23 Acute bronchitis 19893536 J20.8 will start on z cj and medrolnoth ing for cough needed at this time Cough 34427760 R05.1 will fu progress, if no improvemen t will set up with CXR Type 2 clare betes mellitus 68710101 E11.65 stable Pulmonary embolism 95063 003 I26.99 resolved/s table [id number] MICHAEL MOULTON [facility] [address] [facility],[place] [address] 08/07/2023 08:08:50 08/07/2023 15:42:30 Acute bronchitis 77024482 J20.8 start on doxy, pred, albuterol Type 2 clare betes mellitus 00076432 E11.65 stable [id number] MICHAEL MOULTON [facility] [address] [facility] [address],[place] [address] [place] [address] 02/06/2024 09:28:26 02/08/2024 16:26:12 Depression screening 782319322 Z13.31 negative Type 2 clare betes mellitus 31237659 E11.65 switch off rybelsus to ozempic Essential hypertension 42725916 I10 BP is excellent Hypercholesterolemia 136 48792 E78.2 stable Obesity 152034537 E66.09 discussed diet control and exercisewi ll also switch her out to ozempic [id number] MICHAEL MOULTON [facility] [address] [facility] [address],[place] [address] 04/28/2024 09:27:59 04/28/2024 10:48:43 Type 2 diabetes mellitus 58000223 E11.65 increase to 0.5 mg, will then need to bump up to the 1 mg Hypothyroidism 69806448 E03.8 stable Neuropathy 611529628 G62 .9 will check a few labs to find if there is a def causing nighttime Dizziness 781824841 R42 resolved [id number] MICHAEL MOULTON [facility] [address] [facility] [address],[place] [address] 08/04/2024 09:35:16 08/04/2024 10:11:14 Essential hypertension 04851808 I10 BP is excellent Type 2 clare betes mellitus 84269766 E11.65 increase to ozempic 1 mg Atopic dermatitis 299522 01 L20.89 start triamcinol one Hypercholesterolemia 136 86137 E78.2 stable Hypothyroidism 18311717 E03.8 stable Health Concerns Section Related Observation LastModified by Organization Detai ls LastModified Time None Recorded Concern Status LastModified by Organization Details LastModified Time None Recorded Advance Directives Directive None Recorded Payers Encounter Date Sequence Insurance Name Policy Number Policy Maciel Covered Member ID Maciel Member ID Guarantor Name 07/31/2023 1 [place]MED[place]ARE [place] HMO) [id number] Clemencia Fermin [id number] Clemencia Fermin 07/31/2023 2 [place] [facility] Clemencia Fermin [id number] Clemencia Mark Zander 08/07/2023 1 [place] HMO) [id number] Clemencia Mark Zander [id number] Clemencia Mark Zander 08/07/2023 2 [place] [facility] Clemencia Mark Zander [id number] Clemencia Mark Zander 02/06/2024 1 [place] HMO) [id number] Clemencia Mark Zander [id number] Clemencia Mark Zander 02/06/2024 2 [place] [facility] Clemencia Mark Zander [id number] Clemencia Mark Zander 04/28/2024 1 [place] HMO) [id number] Clemencia Mark Zander [id number] Clemencia Mark Zander 04/28/2024 2 [place] [facility] Clemencia Mark Zander [id number] Clemencia Mark Zander 08/04/2024 1 [place]MED[place] HMO) [id number] Clemencia Mark Zander [id number] Clemencia Mark Zander 08/04/2024 2 [place] [facility] Clemencia [place] [id number] Clemencia Mark Zander Notes Date Note Type Note Provider Name a nd Address Organization Details Recorded Time 4 text/html c/o sick symptoms The patient is participating in this appointment via telemedicine communication with a phone call/video calling service (TextualAds)The patient consents to use of these platforms in place of an in-person appointment due to either sick symptoms the patient is presenting with or current office closure due to COVID exposure in order to keep our office staff and patients safe The patient presents to the office today with concerns of sick symptoms including nasal congestion, chest tightness, producing green mucus, cough The symptoms started originally last week, has her granddaughter who is sick with similar symptomsThe patient reports exposure to granddaughterThe patient symptoms mainly involves the chest, no sob will monitor for that given hx of recurrent pnano CXR indicated at this time Pertinent comorbidities include hx of pna, hx of breast cancer, hx of PE The patient symptoms are alleviated by restThe patient symptoms are exacerbated by too much activity The patient has tested for COVID-19 and the results was negative MICHAEL MOULTON [address] [place], [address], [facility] 07/31/2023 11:14:53 4 text/html 3 mos fu The patient is participating in this appointment via telemedicine communication with a phone call/video calling service (TextualAds)The patient consents to use of these platforms in place of an in-person appointment due to either sick symptoms the patient is presenting with or current office closure due to COVID exposure in order to keep our office staff and patients safe Patient presents today for follow-up for Type 2 Diabetes Recent lab showed an A1c of 7%, sugar has been less than 160 The patient has been compliant with medications no issuesThe complications patient is experiencing are noneThe patient has current concerns about related to their diabetes diagnosis noneThe patient has been compliant with lifestyle changes including dietary changes, exercise and healthy habits Discussion about feet reveals normalDiscussion about eyes reveal normal Treatment plan going forward is cont meds a prescribed MICHAEL MOU[address]TON [address] [place], [address], [facility] Internal [facility] 08/07/2023 14:44:24 4 text/html 3 mos f/u the patient is doing well overall discussed alternatives to the rybelsus she has been on it for awhilesuggested switching to the injection, ozempic instead the patient is doing well overall with her other medications HTN: today in the office the patient BP is 126/74 L arm sittingthe patient is doing well on the BP medication with no side effects and no adjustment of their medications needed today at the appointmentwell-contro lled on medicationdenies chest pain, sob, ankle swelling, orthopnea, palpitations she was stopped on the medication for her cancer treatmentsthe patient is also off the warfarin as well doing well with being off the medicationno issues or concerns at this time the patient has a dentist appointment today to get a crown placedthe patient has her amoxicillin needs standing orders placed MICHAEL [address] [place], [address], [facility] Internal Medicine 02/06/2024 09:58:48 4 text/html 3 ms f/u + ER f/u patient presented to the ER for left leg swelling and dizzy, PMH sig for h/x of DVT currently on warfarinEK, US Venous, blood work was all normalno significant acute changesdischarged stable home the patient needs to be upped on her ozempicnew script placed needs to check her thyroid levels and see if they are still stable need to keep eye on her levels given her use of ozempic they delayed gastric emptying can cause issues MICHAEL MOU[address] [place], [phone], [facility] Medicine 04/28/2024 10:19:04 5 text/html f/u diabetes HTN: today in [...] due for blood work MICHAEL MOULTON [address] [place], [phone], [facility] Medicine 08/04/2024 10:01:05 OBGyn Episode No OBEpisode recorded.
== END 2024-08-04 10:35 | disposition home or self-care (01) ==
LOC: HO.HMGCLDS 10:34
PROVIDERS: PCP Internal Medicine; Visit Provider Physician Assistant
DX: E11.65 Type 2 diabetes mellitus with hyperglycemia (principal); E78.2 Mixed hyperlipidemia; E03.9 Hypothyroidism, unspecified
CPT/HCPCS: 36415; 80053; 80061; 83036; 84439; 84443; 85025

== ENCOUNTER 2024-12-19 08:45 | Outpatient (REF) | payer MEDICARE, MEDICAID, SELFPAY ==
--- OUTSIDE RECORDS SUMMARY | 2024-12-19 09:01 | XMS_ITS | Patient Health Record ---
Author Organization [facility] Address [address] [place] [address] Care Team Providers Care Emergency Veterinary Assistant Name Role Phone Anup Bowers MD Primary Care Provider Unavailabl e Cesario Billymie Unavailable [phone] Allergies Allergen (clinical drug ingredient) Drug/Non Drug Allergy documented on EMR Reaction Allergy Type Onset Date Status sulfa Hives Drug Allergy Active Adhesive Tape Rash Drug Allergy Act keiko Reason For Referral No Information Medications Medication SIG (Take, Route, Frequency, Duration) Notes Start Date End Date Status Levothyroxine Sodium 100 MCG 1 tablet on an empty stomach in the morning Orally Once a day Active Letrozole 2.5 MG Orally Act keiko Carvedilol 12.5 MG Orally A ctive Calcium Active Stool Softener Activ e Warfarin Sodium Acti ve Tolterodine Tartrate Active Atorvastatin Calcium 20 MG Orally Active Social History Tobacco Use: Social History Observation Description Date Details (start date - stop date) Former Smoker NA - NA Tobacco Use/Smoking Question Answer Notes Are you a: former smoker Alcohol Screen Question Answer Notes Did you have a drink containing alcohol in the p ast year? No Points 0 Interpretation Negative Tobacco use other than smoking: Question Answer Notes Are you an other tobacco user? 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
[2024-12-19 09:58] LABS: MANUAL DIFF FLAG NO
[2024-12-19 10:08] LABS: Basophils Absolute Auto 0.1 X10*3/uL (0.0-0.2); Eosinophils Absolute Auto 0.2 X10*3/uL (0.0-0.4); Eosinophils Percent Auto 2.7 % (0-4); Hematocrit 43.9 % (37.0-47.0); Hemoglobin 14.3 g/dl (12.0-16.0); Imm Gran Abs Auto 0.08 X10*3/uL (0.00-0.03); Imm Gran Pct Auto 0.9 % (0.0-0.4); Lymphocytes Absolute Auto 1.5 X10*3/uL (1.2-4.9); Lymphocytes Percent Auto 16.5 % (20-40); Mean Corpuscular HGB Conc 32.6 g/dl (31.0-35.0); Mean Corpuscular Hemoglobin 28.7 pg (27.0-33.0); Mean Corpuscular Volume 88.2 fL (80.0-98.0); Monocytes Absolute Auto 0.7 X10*3/uL (0.1-1.2); Monocytes Percent Auto 7.5 % (2-11); Neutrophils Absolute Auto 6.3 x10*3/uL (2.0-8.3); Neutrophils Percent Auto 71.4 % (45-73); Platelet Count 220 X10*3/uL (160-400); Red Blood Count 4.98 X10*6/uL (4.20-5.50); Red Cell Distribution Width 14.1 % (11.0-16.0); White Blood Count 8.9 X10*3/uL (4.8-10.8)
[2024-12-19 10:47] LABS: Estimated Average Glucose 203 mg/dL; Hemoglobin A1c % 8.7 % (<6.0)
[2024-12-19 11:02] LABS: Alanine Aminotransferase 10 U/L (0-31); Alkaline Phosphatase 101 U/L (39-117); Anion Gap 13 (12-20); Aspartate Amino Transferase 17 U/L (5-31); Bilirubin Total 0.7 mg/dL (0.0-1.0); Blood Urea Nitrogen 24 mg/dL (9-16); Calcium 8.7 mg/dL (8.4-10.2); Carbon Dioxide 23 mmol/L (22-29); Chloride 106 mmol/L (96-108); Estimated Glomerular Filt Rate > 60; Glucose Random 236 mg/dL (60-115); Potassium 4.2 mmol/L (3.3-5.1); Sodium 138 mmol/L (135-145)
== END 2024-12-19 08:46 | disposition home or self-care (01) ==
LOC: HO.HMGCLDS 08:45
PROVIDERS: PCP Physician Assistant; Visit Provider Physician Assistant
DX: E11.65 Type 2 diabetes mellitus with hyperglycemia (principal)
CPT/HCPCS: 36415; 80053; 83036; 85025

== ENCOUNTER 2025-03-02 07:17 | Outpatient (REF) | payer MEDICARE, MEDICAID, SELFPAY ==
[2025-03-02 10:34] LABS: Hematocrit 44.1 % (37.0-47.0); Hemoglobin 14.3 g/dl (12.0-16.0); Imm Gran Abs Auto 0.07 X10*3/uL (0.00-0.03); Imm Gran Pct Auto 0.8 % (0.0-0.4); Lymphocytes Absolute Auto 1.3 X10*3/uL (1.2-4.9); MANUAL DIFF FLAG SCAN; Mean Corpuscular HGB Conc 32.4 g/dl (31.0-35.0); Mean Corpuscular Hemoglobin 29.0 pg (27.0-33.0); Mean Corpuscular Volume 89.5 fL (80.0-98.0); NRBC Abs Auto 0.000 X10*3/uL (0.0-0.012); NRBC Pct Auto 0.0 /100WBC (0.0-0.2); PLT CLUMP 1; Red Blood Count 4.93 X10*6/uL (4.20-5.50); SCAN SMEAR FLAG 1
[2025-03-02 10:51] LABS: Hemoglobin A1C 267.1951 umol/L; Total Hemoglobin (HGBA1C) 3701.5440 umol/L
[2025-03-02 11:16] LABS: Platelet Count 182 X10*3/uL (160-400); White Blood Count 8.4 X10*3/uL (4.8-10.8)
== END 2025-03-02 07:18 | disposition home or self-care (01) ==
LOC: HO.HMGCLDS 07:17
PROVIDERS: PCP Physician Assistant; Visit Provider Physician Assistant
DX: E11.9 Type 2 diabetes mellitus without complications (principal)
CPT/HCPCS: 36415; 80053; 80061; 83036; 85025

== ENCOUNTER 2025-03-04 06:22 | Outpatient (REF) | payer MEDICARE, MEDICAID, SELFPAY ==
--- OUTSIDE RECORDS SUMMARY | 2025-03-04 06:25 | XMS_ITS | Encounter Summary ---
Author Organization [facility] Address [address] [place] [address] Care Team Providers Care Slumber Room Attendant Name Role Phone Unavailable Primary Care Provider Unavailabl e Encounter Details Date Type Department Care Team (Late st Contact Info) Description 12/31/[address] [facility] - Main Lab [address] [place] [address] Johnnie Smith MD [facility] [place] [phone] Local infection of the skin and subcutaneous tissue, unspecified Social History Tobacco Use Types Packs/Day Years Used Date Smoking Tobacco: Never Assessed Comments Unknown Sex and Gender Information Value Date Recorded Sex Assigned at Not on file Legal Sex Female 5:54 PM EDT Gender Identity Not on file Sexual Orientation Not on file documented as of this encounter Plan of Treatment Pending Results Name Type Priority Associated Diagnoses Date /Time Fungal identification, mold Microbiology Routine Local infection of the skin and subcutaneous tissue, unspecified 01/26/2025 12:00 AM EDT Organism identification, mold result Microbiology Routine Local infection of the skin and subcutaneous tissue, unspecified 01/26/2025 12:00 AM EDT documented as of this encounter Procedures Procedure Name Priority Date/Time Associated Diagnosis Comments ..ORGANISM IDENTIFICATION, MOLD RESULT Routine 01/26/2025 12:00 AM EDT Local infection of the skin and subcutaneous tissue, unspecified CULTURE FUNGUS, SKIN HAIR OR NAILS Routine 01/26/2025 12:00 AM EDT Local infection of the skin and subcutaneous tissue, unspecified FUNGAL IDENTIFICATION, MOLD Routine 01/26/2025 12:00 AM EDT Local infection of the skin and subcutaneous tissue, unspecified documented in this encounter Results * (ABNORMAL) Culture fungus, skin hair or nails (01/26/2025 12:00 AM EDT) Culture, Fungus Fungus(A) 3:07 PM EDT [facility] Comment: ORGANISM SENT TO [facility] FOR IDENTIFICATION. REFER TO 25[facility]- [id number] The organism value for this result has been updated. These results have been appended to the previously preliminary verified report. Swab 01/26/2025 12/31/2024 6:0 4 PM EDT Johnnie Smith MD LAB MICROBIOLOGY - G ENERAL ORDERABLES Final Result [facility] ([facility] [address] [place] [address], [place] [phone] documented in this encounter Visit Diagnoses Diagnosis Local infection of the skin and subcutaneous tissue, unspecified documented in this encounter
--- OUTSIDE RECORDS SUMMARY | 2025-03-04 06:25 | XMS_ITS | Encounter Summary ---
Author Organization [facility] Address [address] [place] [address] Care Team Providers Care Inventory Representative Name Role Phone Unavailable Primary Care Provider Unavailabl e Encounter Details Date Type Department Care Team (Late st Contact Info) Description 01/26/2025 Lab Requisition [facility] - Main Lab [address] [place] [address] Johnnie Smith MD [address] [place] [address] [place] [phone] Local infection of the skin and subcutaneous tissue, unspecified Social History Tobacco Use Types Packs/Day Years Used Date Smoking Tobacco: Never Assessed Comments Unknown Sex and Gender Information Value Date Recorded Sex Assigned at Not on file Legal Sex Female 5:54 PM EDT Gender Identity Not on file Sexual Orientation Not on file documented as of this encounter Plan of Treatment Not on file documented as of this encounter Visit Diagnoses Diagnosis Local infection of the skin and subcutaneous tissue, unspecified documented in this encounter
--- OUTSIDE RECORDS SUMMARY | 2025-03-04 06:25 | XMS_ITS | Clinical Summary ---
Author Organization [address] Address [address] [place] [address] Phone Care Team Providers Care Entry Level Management Name Role Phone Unavailable Primary Care Provider Unavailabl e Encounters Date Type Department Care Team Description 01/26/2025 Lab Requisition [facility] [address] [place] [address] Johnnie Smith MD Local infection of the skin and subcutaneous tissue, unspecified 12/31/2024 Lab Requisition [facility] [address] [place] [address] Johnnie Smith MD Local infection of the skin and subcutaneous tissue, unspecified from Last 3 Months Social History Tobacco Use Types Packs/Day Years Used Date Smoking Tobacco: Never Assessed Comments Unknown Sex and Gender Information Value Date Recorded Sex Assigned at Not on file Legal Sex Female 5:54 PM EDT Gender Identity Not on file Sexual Orientation Not on file Plan of Treatment Health Maintenance Due Date Last Done Comments Breast Cancer Screening 1955 DTaP,Tdap,and Td Vaccines (1 - Tdap) 1973 Pneumococcal Vaccine: 50+ Ye ars (1 of 1 - PCV) 2004 Zoster Vaccines (1 of 2) 2004 COVID-19 Vaccine ( - 2023-2 5 season) 2024 Depression Screening 07/09/2024 Colorectal Cancer Screening: Colonoscopy 01/01/2025 Falls Risk Assessment 01/01/2025 Hepatitis C Screening 01/01/2025 Medicare Annual Wellness Visit 01/01/2025 Osteoporosis Screening (Bone Density Screening) 01/01/2025 Social Influencers of Health Screening 01/01/2025 Influenza Vaccine (#1) 2025 RSV Immunization Adult Patie nts (1 - 1-dose 75+ series) 2029 HIB Vaccines Aged Out No longer eligi ble based on patient's age to complete this topic HPV Vaccines Aged Out No longer eligi ble based on patient's age to complete this topic Hepatitis A Vaccines Aged Out No long er eligible based on patient's age to complete this topic Hepatitis B Vaccines Aged Out No long er eligible based on patient's age to complete this topic IPV Vaccines Aged Out No longer eligi ble based on patient's age to complete this topic MMR Vaccines Aged Out No longer eligi ble based on patient's age to complete this topic Meningococcal ACWY Vaccine Aged Out N o longer eligible based on patient's age to complete this topic Meningococcal B Vaccine Aged Out No l onger eligible based on patient's age to complete this topic RSV Immunization Patients Un navarro 20 months Aged Out No longer eligible b ased on patient's age to complete this topic Varicella Vaccines Aged Out No longer eligible based on patient's age to complete this topic Procedures Procedure Name Priority Date/Time Associated Diagnosis Comments ..ORGANISM IDENTIFICATION, MOLD RESULT Routine 01/26/2025 12:00 AM EDT Local infection of the skin and subcutaneous tissue, unspecified FUNGAL IDENTIFICATION, MOLD Routine 01/26/2025 12:00 AM EDT Local infection of the skin and subcutaneous tissue, unspecified CULTURE FUNGUS, SKIN HAIR OR NAILS Routine 01/26/2025 12:00 AM EDT Local infection of the skin and subcutaneous tissue, unspecified from Last 3 Months Results * (ABNORMAL) Culture fungus, skin hair or nails (01/26/2025 12:00 AM EDT) Culture, Fungus Fungus(A) 3:07 PM EDT [facility] ([facility]) [facility] Comment: ORGANISM SENT TO [facility] FOR IDENTIFICATION. REFER TO 25[facility]- [id number] The organism value for this result has been updated. These results have been appended to the previously preliminary verified report. Swab 01/26/2025 12/31/2024 6:0 4 PM EDT Johnnie Smith MD LAB MICROBIOLOGY - G ENERAL ORDERABLES Final Result [facility] [place] ([facility] [address] [place] [address], from Last 3 Months Insurance [employer] MEDICARE ADVANTAGE [employer]
--- OUTSIDE RECORDS SUMMARY | 2025-03-04 06:25 | XMS_ITS | Patient Health Record ---
Author Organization [facility] Address [address] [facility] [place] [address] Care Team Providers Care Coin Machine Assembler Name Role Phone Anup Bowers MD Primary Care Provider Unavailabl e Cesario Billymie Unavailable [phone] Allergies Allergen (clinical drug ingredient) Drug/Non Drug [...] Date Coverage End Date U[employer] [address] [address] [place] [address] [id number] Alisia Fermin Spouse - patient is the spouse of the insured Medical (General) History Medical History History ICD Code Back,Hip,and Knee pain Cancer Chicken pox Surgical History Surgery Date(Month/Year) 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
--- OUTSIDE RECORDS SUMMARY | 2025-03-04 06:25 | XMS_ITS | Patient Health Record ---
Author Organization [facility] Address [address] [place] [address] Care Team Providers Care Crisis Counselor Name Role Phone Laura (RETIRED) Walter SPICER Primary Care Provide r Unavailable Moo White Unavailable [phone] Reason For Referral No Information Problems Problem Type SNOMED Code ICD Code Onset Dates Problem Status W/U Status Risk Notes Problem Screening for malignant neoplasm of colon (457694150) Special screening for malignant neoplasms, colon (V76.51) Active confirmed Plan Of Treatment No Information Insurance Providers Payer Name Payer Address Payer Phone Subscriber Number Group Number Insured Name Patient Relationship to Insured Coverage Start Date Coverage End Date [facility] [address] [place] [address] [id number] REGGIE RENTERIA Self - patient is the insured
[2025-03-04 10:20] LABS: Alanine Aminotransferase 13 U/L (0-31); Albumin Level 4.1 g/dL (3.5-5.0); Alkaline Phosphatase 103 U/L (39-117); Anion Gap 14 (12-20); Aspartate Amino Transferase 26 U/L (5-31); Blood Urea Nitrogen 16 mg/dL (9-16); Calcium 8.5 mg/dL (8.4-10.2); Carbon Dioxide 22 mmol/L (22-29); Chloride 107 mmol/L (96-108); Cholesterol 162 mg/dL (<200); Estimated Glomerular Filt Rate > 60; HDL Cholesterol 40 mg/dL (>40); Potassium 3.9 mmol/L (3.3-5.1); Sodium 139 mmol/L (135-145); Total Protein 7.1 g/dL (6.5-8.0); Triglycerides 278 mg/dL (<150)
== END 2025-03-04 06:23 | disposition home or self-care (01) ==
LOC: HO.HMGCLR 06:22
PROVIDERS: PCP Physician Assistant; Visit Provider Physician Assistant
DX: E11.9 Type 2 diabetes mellitus without complications (principal)
CPT/HCPCS: 36415; 80053; 80061

== ENCOUNTER 2025-04-28 09:31 | Outpatient (REF) | payer MEDICARE, MEDICAID, SELFPAY ==
--- OUTSIDE RECORDS SUMMARY | 2025-04-28 10:42 | XMS_ITS | Patient Health Record ---
Author Organization [facility] Address [address] [place] [address] Care Team Providers Care Community Mental Health Social Worker Name Role Phone Laura (RETIRED) Walter SPICER Primary Care Provide r Unavailable Moo White Unavailable [phone] Reason For Referral No Information Problems Problem Type SNOMED Code ICD Code Onset Dates Problem Status W/U Status Risk Notes Problem Screening for malignant neoplasm of colon (729015921) Special screening for malignant neoplasms, colon (V76.51) Active confirmed Plan Of Treatment No Information Insurance Providers Payer Name Payer Address Payer Phone Subscriber Number Group Number Insured Name Patient Relationship to Insured Coverage Start Date Coverage End Date [facility] [address] [place] [phone] [id number] REGGIE RENTERIA Self - patient is the insured
--- OUTSIDE RECORDS SUMMARY | 2025-04-28 10:42 | XMS_ITS | Patient Health Record ---
Author Organization [facility] Address [address] [place] [address] Care Team Providers Care Laboratory Chemist Name Role Phone Anup Bowers MD Primary Care Provider Unavailabl e Cesario Billymie Unavailable [phone] Allergies Allergen (clinical drug ingredient) Drug/Non Drug [...] Date Coverage End Date UMR [address] [address] [place] [address] [id number] Alisia Fermin Spouse - patient is the spouse of the insured Medical (General) History Medical History History ICD Code Back,Hip,and Knee pain Cancer Chicken pox Surgical History Surgery Date(Month/Year) 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
== END 2025-04-28 09:32 | disposition home or self-care (01) ==
LOC: HO.MAMMO 09:31
PROVIDERS: PCP Internal Medicine; Visit Provider Internal Medicine
DX: Z12.31 Encounter for screening mammogram for malignant neoplasm of breast (principal)
CPT/HCPCS: 77063; 77067

== ENCOUNTER → 2025-04-28 10:00 | Outpatient (BNV) | payer MEDICARE, MEDICAID, SELFPAY | PROVIDERS: PCP Internal Medicine; Visit Provider Internal Medicine | DX: Z12.31 Encounter for screening mammogram for malignant neoplasm of breast (principal) | CPT/HCPCS: 77063; 77067 ==